=== PATIENT | female | born 1935 | race Caucasian/White ===

== ENCOUNTER 2022-12-04 14:03 | Outpatient (REF) | payer MEDICARE, SELFPAY ==
--- NOTE | ~2022-12-04 | MM_ITS ---
EXAMINATION: BONE DENSITOMETRY CLINICAL INDICATION: Osteoporosis. COMPARISON: This is the patient's baseline examination. TECHNIQUE: Using a Narr8 DXA System (software version: 13.1) manufactured by [employer], dual-energy x-ray absorptiometry was performed of the lumbar spine and left hip. The images are of good technical quality. Summary results are attached. FINDINGS: LEFT FEMUR, NECK: BMD 0.417 g/cm2, Z-score -1.6, T-score -4.5, osteoporosis. LEFT FEMUR, TOTAL: BMD 0.432 g/cm2, Z-score -1.8, T-score -4.6, osteoporosis. AP SPINE L1-L2 (excluding L3 and L4): The data of L1-L4 has been changed to exclude the L3 and L4 vertebral bodies, because degenerative sclerosis at these levels may cause overestimation of lumbar spine density. BMD 0.855 g/cm2, Z-score 0.0, T-score -2.6, osteoporosis. IDENTIFIED RISK FACTORS: Height loss, hyperthyroidism, low body weight, osteoporosis, secondary osteoporosis, history of fracture (adult). HISTORY OF FRACTURE: Femur, hip, pelvis. MEDICATIONS: None listed. MM/XR DEXA axial skeleton IMPRESSION: 1. DIAGNOSIS: Severe osteoporosis based on the lowest T-score value of -4.6 in the total femur, and the history of a femur, hip, and pelvis fracture, applying World Health Organization criteria. 2. 10-YEAR FRACTURE RISK PREDICTION, FRAX: According to the guidelines, FRAX calculation should only be performed on patients in the osteopenia bone density category. Therefore, FRAX was not performed on this patient. 3. Treatment Recommendations: NOF guidelines recommend consideration for treatment in postmenopausal women and men age 50 and older presenting with the following: -A hip or vertebral (clinical or morphometric) fracture. -T-score less than or equal to -2.5 at the femoral neck or spine after appropriate evaluation to exclude secondary causes. -Low bone mass at the hip or spine and a 10-year fracture probability by FRAX of greater than or equal to 3% for hip fracture or greater than or equal to 20% for major osteoporotic fracture based on the [place] adapted WHO algorithm. 4. Other Recommendations: All treatment decisions require clinical judgment and consideration of individual patient factors, including patient preferences, comorbidities, previous drug use, risk factors not captured in the FRAX model (e.g. frailty, falls, vitamin D deficiency, increased bone turnover, interval significant decline in bone density) and possible under or overestimation of fracture risk by FRAX. Additional medical evaluation for secondary cause of low bone mineral density may be appropriate. FUTURE SCAN RECOMMENDATION: People with diagnosed cases of osteoporosis or at high risk for fracture should have regular bone mineral density tests. For patients eligible for Medicare, routine testing is allowed once every 2 years. The testing frequency can be increased to one year for patients who have rapidly progressing disease, those who are receiving or discontinuing medical therapy to restore bone mass, or have additional risk factors.
== END 2022-12-04 14:04 | disposition home or self-care (01) ==
LOC: HO.MAMMO 14:03
PROVIDERS: Visit Provider Nurse Practitioner Family
DX: Z13.820 Encounter for screening for osteoporosis (principal); M81.0 Age-related osteoporosis without current pathological fracture; Z78.0 Asymptomatic menopausal state
CPT/HCPCS: 77080

== ENCOUNTER → 2022-12-04 14:30 | Outpatient (BNV) | payer MEDICARE, SELFPAY | PROVIDERS: Visit Provider Radiology Diagnostic Radiology | DX: M81.0 Age-related osteoporosis without current pathological fracture (principal) | CPT/HCPCS: 77080 ==

== ENCOUNTER 2022-12-06 14:34 | Outpatient (REF) | payer MEDICARE, SELFPAY ==
--- NOTE | ~2022-12-06 | CT_ITS ---
EXAMINATION: CT ABDOMEN AND PELVIS WITHOUT CONTRAST CLINICAL INFORMATION: Weight loss and diarrhea. COMPARISON: None available. TECHNIQUE: Multidetector volumetric imaging was performed from the superior aspect of the liver through the pubic symphysis. Sagittal and coronal reformatted images were obtained on the technologist's workstation. This CT examination was performed using dose optimization techniques as appropriate, variously including the following: *Automated exposure control *Adjustment of mA and/or kV according to patient size (this includes techniques or standardized protocols for targeted exams where dose is matched to indication/reason for exam; i.e. extremities or head) *Use of iterative reconstruction technique DLP: 303 mGy-cm. FINDINGS: LUNG BASES: Mild emphysematous changes are present. No suspicious lung nodules are seen. There is some mild peribronchial thickening present. Coronary artery calcification is present. The breasts are dense with coarse calcifications. LIVER, GALLBLADDER, AND BILIARY TREE: The liver is normal in size, shape, and attenuation. No focal hepatic lesion or biliary ductal dilatation is present. The gallbladder is unremarkable with no evidence of radiopaque gallstones, gallbladder wall thickening, or obvious pericholecystic inflammatory changes. PANCREAS: Unremarkable. SPLEEN: Unremarkable. ADRENAL GLANDS: Unremarkable. KIDNEYS AND URETERS: The left kidney is smaller than the right with some cortical atrophy, most prominent at the upper pole. A benign left-sided 1.6 cm Bosniak class I renal cyst is noted which requires no additional imaging or followup. No solid renal masses are seen. No nephrocalcinosis. No hydronephrosis. BLADDER: Unremarkable. GASTROINTESTINAL TRACT: There is a small hiatal hernia. There is colonic diverticulosis without diverticulitis. The small and large bowel are otherwise unremarkable. The appendix is not seen but there is no evidence of appendicitis. ABDOMINAL WALL: No significant hernia is appreciated. LYMPH NODES: No retroperitoneal lymphadenopathy. VASCULAR: Severe calcific atherosclerotic changes are present in the aorta and iliofemoral vessels. PELVIC VISCERA: Unremarkable. OSSEOUS STRUCTURES: Marked degenerative changes are present throughout the spine. There is a scoliosis convex to the left. There are 3 screws present extending through the right femoral neck. No bony destructive lesions are seen. CT/CT abdomen pelvis wo IV con IMPRESSION: 1. An occult malignancy or another cause for the patient's weight loss and diarrhea has not been found. 2. Incidental note made of emphysematous changes at the lung bases, small hiatal hernia, colonic diverticulosis without diverticulitis, severe atherosclerotic changes and degenerative changes in the spine with scoliosis. Fleischner guidelines were followed.
== END 2022-12-06 14:35 | disposition home or self-care (01) ==
LOC: HO.CT 14:34
PROVIDERS: PCP Nurse Practitioner Family; Visit Provider Internal Medicine
DX: R63.4 Abnormal weight loss (principal)
CPT/HCPCS: 74176

== ENCOUNTER 2023-10-01 15:27 | Emergency (ER) | payer MEDICARE, SELFPAY ==
[2023-10-01 15:33] VITALS: BP 132/82; BP 140/70; PULSE 72; PULSE 93; RESP 20; TEMP 37.3; O2SAT 97; O2SAT 98; BMI 15.2
--- NOTE | 2023-10-01 15:54 | ECG_ITS ---
Test Reason : AMS Blood Pressure : / mmHG Vent. Rate : 095 BPM Atrial Rate : 080 BPM P-R Int : 000 ms QRS Dur : 064 ms QT Int : 344 ms P-R-T Axes : 000 082 064 degrees QTc Int : 432 ms Normal sinus rhythm Premature atrial complexes Nonspecific ST and T wave abnormality Abnormal ECG No previous ECGs available Referred By: Chasidy Flores Electronically Signed By:ALIREZA GRAHAM
--- NOTE | 2023-10-01 16:27 | ED.AMS ---
HPI - Altered Mental Status General Chief Complaint: Altered Mental Status Stated Complaint: HALLUCINATIONS Time Seen by Provider: 10/01/23 16:02 Source: patient and EMS Mode of arrival: EMS Limitations: no limitations History of Present Illness ED Provider: Dr. Sahara Cade HPI narrative: Patient comes to the emergency room via ambulance from assisted living. Patient states that for the last few days, patient has been having hallucinations, mostly seeing her nurse walking around her bedroom at times that patient is aware that should be there. Patient states that she is aware that she is having hallucinations. Patient states that about 10 days ago she was diagnosed with a UTI and started on Bactrim. Patient denies any hematuria or dysuria. Patient denies abdominal pain, no fever or chills Related Data Allergies Allergy/AdvReac Type Severity Reaction Status Date / Time Penicillins Allergy Hives Verified 10/01/23 15:54 Review of Systems Review of Systems: Constitutional : No Weight loss, No Fever, No Chills, No Night Sweats, No Fatigue, No Malaise ENT/Mouth : No Hearing loss, No Ear Pain, No Nasal Congestion, No Sinus Pain, No Hoarseness, No sore throat, No Rhinorrhea, No Swallowing Difficulty Eyes: No Eye Pain, No Swelling, No Redness, No Foreign Body, No Discharge, No Vision Changes Cardiovascular : No Chest Pain, No SOB, No Dyspnea on Exertion, No Orthopnea, No Edema, No Palpitations Respiratory : No Cough, No Sputum, No Wheezing, No Smoke Exposure, No Dyspnea Gastrointestinal : No Nausea, No Vomiting, No Diarrhea, No Constipation, No abdominal Pain, No Hematochezia, No Melena Genitourinary : no irregular bleeding, No Dysuria, No Urinary Frequency, No Hematuria, No Urinary Incontinence, No Urgency, No Flank Pain, No Urinary Flow Changes, No Hesitancy Musculoskeletal : No joint pain, No Myalgias, No Joint Swelling Skin : No Skin Lesions, No rash Neuro : No Weakness, No Numbness, No Paresthesias, No Loss of Consciousness, No Dizziness, No Headache, complaining of hallucinations, being aware of it. Psych : No Anxiety/Panic, No Depression, No SI/HI/AH/VH, No Social Issues, Heme/Lymph: No Bruising, No Bleeding,No Lymphadenopathy Endocrine : No Polyuria, No Polydipsia, No Temperature Intolerance [facility] Past Medical History Medical History (Updated 10/01/23 @ 19:36 by Sahara Cade MD) Hypothyroidism Social History Social History Smoked in Last 30 Days: No Use of substances other than those prescribed or required for medical reasons: No Advance Directives: No Advance Directives Information Provided: Yes Do you have a plan to hurt others: No Plan Physical Exam ED Vital Signs: Vital Signs - 24 hr 10/01/23 15:33 10/01/23 17:47 10/01/23 19:23 Temperature 99.2 F 98.2 F 98.0 F Pulse Rate 93 54 81 Respiratory Rate 20 14 17 Blood Pressure 132/82 146/64 H 152/70 H Pulse Oximetry 97 99 98 Oxygen Delivery Method Room Air Room Air Room Air BMI result Body Mass Index 15.2 Const Other: Appearance: Alert. Oriented X3. No acute distress. Eyes: Pupils equal, round and reactive to light. ENT: Pharynx normal. Neck: Normal inspection. Neck supple. No lymph nodes noted. No crepitus CVS: Normal heart rate and rhythm. Pulses normal. Normal S1 and S2 Respiratory: No respiratory distress. Breath sounds normal. No Wheezing. No rales Abdomen: Soft and nontender. No rigidity. No distention. Skin: Skin warm and dry. Normal skin color. Normal skin turgor. Extremities: No lower extremity edema. No Lacerations. No Rash Neuro: Oriented X 3. No motor deficit. No sensory deficit. Moving all extremities. No slurred speech. CN 2 through 12 grossly intact Psych: calm, cooperative, normal affect Course Course Course Narrative: -all of patient's labs pending Medical Decision Making Medical Decision Making [facility] Narrative: Normal hematology and chemistry, normal ammonia levels, no UTI, urine toxicology negative, EtOH negative. -patient alert and oriented x3, no acute distress, very sharp mentally -we discussed the patient with her residence group. They are willing to take the patient back. Patient ready for discharge. -patient states that today she has not had any hallucinations. Patient feels well. Asymptomatic since her arrival. Differential Diagnosis Differential Diagnoses: The differential diagnosis associated with the presentation includes (UTI, dementia) Lab Data [facility] Lab Attestation statement: I reviewed the patient's lab results. 10/01/23 16:32 10/01/23 16:32 Labs: Lab Results 10/01/23 10/01/23 Range/Units 16:32 18:42 WBC 4.6 L (4.8-10.8) X10*3/uL RBC 4.08 L (4.20-5.50) X10*6/uL Hgb 12.6 (12.0-16.0) g/dl Hct 37.3 (37.0-47.0) % MCV 91.4 (80.0-98.0) fL MCH 30.9 (27.0-33.0) pg MCHC 33.8 (31.0-35.0) g/dl RDW 14.0 (11.0-16.0) % Plt Count 215 (160-400) X10*3/uL MPV 9.3 L (9.4-12.3) fL Immature Gran % (Auto) 0.2 (0.0-0.4) % Neut % (Auto) 66.9 (45-73) % Lymph % (Auto) 20.2 (20-40) % [place] % (Auto) 9.8 (2-11) % Eos % (Auto) 2.0 (0-4) % Baso % (Auto) 0.9 (0-2) % Lymph # (Auto) 0.9 L (1.2-4.9) X10*3/uL [place] # (Auto) 0.5 (0.1-1.2) X10*3/uL Eos # (Auto) 0.1 (0.0-0.4) X10*3/uL Baso # (Auto) 0.0 (0.0-0.2) X10*3/uL Abs Immat Gran (auto) 0.01 (0.00-0.03) X10*3/uL Absolute Neuts (auto) 3.1 (2.0-8.3) x10*3/uL Absolute Nucleated RBC 0.000 (0.0-0.012) X10*3/uL Nucleated RBC % (auto) 0.0 (0.0-0.2) /100WBC Sodium 139 (135-145) mmol/L Potassium 4.2 (3.3-5.1) mmol/L Chloride 105 (96-108) mmol/L Carbon Dioxide 26 (22-29) mmol/L Anion Gap 12 (12-20) BUN 26 H (9-16) mg/dL Creatinine 1.09 (0.5-1.4) mg/dL Estim Creat Clear Calc 25.7 Estimated GFR 48 Random Glucose 97 (60-115) mg/dL Calcium 9.5 (8.4-10.2) mg/dL Total Bilirubin 0.6 (0.0-1.0) mg/dL Direct Bilirubin 0.2 (0.0-0.5) mg/dL AST 48 H (5-31) U/L ALT 22 (0-31) U/L Alkaline Phosphatase 72 (39-117) U/L Ammonia 14 (13-55) umol/L Total Protein 6.9 (6.5-8.0) g/dL Albumin 3.9 (3.5-5.0) g/dL TSH 0.91 (0.32-4.0) uIU/mL Urine Color Yellow Urine Appearance Clear Urine pH 6.0 (5.0-9.0) Ur Specific [place] 1.010 (1.005-1.025) Urine Protein Negative (Neg-Trace) mg/dL Urine Glucose (UA) Negative (Negative) mg/dL Urine Ketones Trace (Negative) mg/dL Urine Blood Negative (Negative) Urine Nitrite Negative (Negative) Ur Leukocyte Esterase Negative (Negative) Urine Opiates Screen Not Detected (Not Detect) Ur Buprenorphine Scrn Not Detected (Not Detect) ng/mL Ur Oxycodone Screen Not Detected (Not Detect) ng/mL Urine Methadone Screen Not Detected (Not Detect) ng/mL Urine Fentanyl Screen Not Detected (Not Detect) Ur Barbiturates Screen Not Detected (Not Detect) Ur Phencyclidine Scrn Not Detected (Not Detect) Ur Amphetamines Screen Not Detected (Not Detect) U Benzodiazepines Scrn Not Detected (Not Detect) Urine Cocaine Screen Not Detected (Not Detect) U Marijuana (THC) Screen Not Detected (Not Detect) Ethyl Alcohol < 10 mg/dL Discharge Plan Discharge Clinical Impression: Hallucinations Patient Disposition: Home, Self-Care Instructions: Nonpsychiatric Hallucinations (ED) Print Language: Malay
[2023-10-01 16:37] LABS: MANUAL DIFF FLAG NO
[2023-10-01 16:46] LABS: Ammonia 14 umol/L (13-55); Basophils Percent Auto 0.9 % (0-2); Eosinophils Absolute Auto 0.1 X10*3/uL (0.0-0.4); Hematocrit 37.3 % (37.0-47.0); Hemoglobin 12.6 g/dl (12.0-16.0); Imm Gran Abs Auto 0.01 X10*3/uL (0.00-0.03); Imm Gran Pct Auto 0.2 % (0.0-0.4); Lymphocytes Absolute Auto 0.9 X10*3/uL (1.2-4.9); Lymphocytes Percent Auto 20.2 % (20-40); Mean Corpuscular HGB Conc 33.8 g/dl (31.0-35.0); Mean Corpuscular Hemoglobin 30.9 pg (27.0-33.0); Mean Corpuscular Volume 91.4 fL (80.0-98.0); Mean Platelet Volume 9.3 fL (9.4-12.3); Monocytes Absolute Auto 0.5 X10*3/uL (0.1-1.2); Monocytes Percent Auto 9.8 % (2-11); Neutrophils Absolute Auto 3.1 x10*3/uL (2.0-8.3); Neutrophils Percent Auto 66.9 % (45-73); Platelet Count 215 X10*3/uL (160-400); Red Blood Count 4.08 X10*6/uL (4.20-5.50); White Blood Count 4.6 X10*3/uL (4.8-10.8)
[2023-10-01 16:52] LABS: Ethanol < 10 mg/dL
[2023-10-01 16:55] LABS: Alanine Aminotransferase 22 U/L (0-31); Albumin Level 3.9 g/dL (3.5-5.0); Alkaline Phosphatase 72 U/L (39-117); Anion Gap 12 (12-20); Aspartate Amino Transferase 48 U/L (5-31); Bilirubin Direct 0.2 mg/dL (0.0-0.5); Bilirubin Total 0.6 mg/dL (0.0-1.0); Blood Urea Nitrogen 26 mg/dL (9-16); Calcium 9.5 mg/dL (8.4-10.2); Carbon Dioxide 26 mmol/L (22-29); Chloride 105 mmol/L (96-108); Creatinine Clr Calc Pharmacy 25.7; Estimated Glomerular Filt Rate 48; Glucose Random 97 mg/dL (60-115); Potassium 4.2 mmol/L (3.3-5.1); Sodium 139 mmol/L (135-145); Total Protein 6.9 g/dL (6.5-8.0)
[2023-10-01 17:15] LABS: TSH reflex Free T4 0.91 uIU/mL (0.32-4.0)
[2023-10-01 17:47] VITALS: BP 146/64; PULSE 54; RESP 14; TEMP 36.8; O2SAT 99
--- NOTE | 2023-10-01 18:18 | PC.NURSE ---
pt sent from [facility] facility with chief complaints of confusion, hallucinations and delusions. per ems pt was previously diagnosed with uti and started on abx, she did not take the full course. staff thinks the behavior is related to the uti.
[2023-10-01 18:55] LABS: Appearance Urine Clear; Color Urine Yellow; Glucose Urine UA Negative (Negative); Leukocyte Esterase Urine Negative (Negative); Nitrite Urine Negative (Negative); Urine Blood Negative (Negative); Urine Ketones Trace mg/dL (Negative); Urine Protein Negative (Neg-Trace)
[2023-10-01 19:09] LABS: Amphetamine Screen Urine Not Detected (Not Detect); Barbiturates, Urine Not Detected (Not Detect); Benzodiazepines Screen Urine Not Detected (Not Detect); Buprenorphine Scr Not Detected (Not Detect); Cannabinoid Screen Urine Not Detected (Not Detect); Cocaine Screen Urine Not Detected (Not Detect); Fentanyl, urine Not Detected (Not Detect); Methadone Screen, Urine Not Detected (Not Detect); Opiate Screen Urine Not Detected (Not Detect); Oxycodone Screen Urine Not Detected (Not Detect); Phencyclidine Screen Urine Not Detected (Not Detect)
[2023-10-01 19:23] VITALS: BP 152/70; PULSE 81; RESP 17; TEMP 36.7; O2SAT 98
--- NOTE | 2023-10-01 19:30 | PC.NURSE ---
Called [facility] and spoke with the nurse on duty, Shea, who expressed concerns for pts hallucinations post UTI treatment. Lab and urine results discussed with Shea. Plan is for pt to return to assisted living facility. Code to get through the door is 6611*. made aware.
[2023-10-01 21:37] VITALS: BP 152/70; PULSE 81; RESP 17; TEMP 36.7; O2SAT 98
== END 2023-10-01 21:39 | disposition home or self-care (01) ==
PROVIDERS: Emergency Provider Emergency Medicine
DX: R44.3 Hallucinations, unspecified (principal); Z87.440 Personal history of urinary (tract) infections
CPT/HCPCS: 36415; 80048; 80076; 80307; 81003; 82140; 84443; 85025; 93005; 99283; 99285

== ENCOUNTER → 2023-10-01 15:54 | Outpatient (BNV) | payer MEDICARE, SELFPAY | PROVIDERS: Emergency Provider Emergency Medicine; Visit Provider Internal Medicine | DX: R94.31 Abnormal electrocardiogram [ECG] [EKG] (principal) | CPT/HCPCS: 93010 ==

== ENCOUNTER 2023-10-03 10:41 | Inpatient (IN) | payer MEDICARE, SELFPAY ==
--- NOTE | ~2023-10-03 | CT_ITS ---
EXAMINATION: CT HEAD WITHOUT CONTRAST CT CERVICAL SPINE WITHOUT CONTRAST CLINICAL INFORMATION: 88-year-old female, status post fall and mental status change COMPARISON: None TECHNIQUE: CT of the head and cervical spine were performed without intravenous contrast. Multiplanar reformats were rendered and reviewed. This CT examination was performed using dose optimization techniques as appropriate, variously including the following: *Automated exposure control *Adjustment of mA and/or kV according to patient size (this includes techniques or standardized protocols for targeted exams where dose is matched to indication/reason for exam; i.e. extremities or head) *Use of iterative reconstruction technique DLP: 780 mGy-cm. FINDINGS: CT head: No intracranial hemorrhage, large infarction, or mass lesion is seen. No extra-axial collection is appreciated. The ventricles are normal in size and configuration without evidence of hydrocephalus. There are mild patchy periventricular white matter changes as a sequela of microangiopathy. The visualized paranasal sinuses and mastoid air cells are clear. CT cervical spine: The cervical alignment is normal. The craniocervical junction is normal. The vertebral body heights are maintained. No cervical spine fracture is seen. There are multilevel degenerative changes with narrowing of disc spaces and hyperlordosis. There is no evidence of fractures. There is grade 1 posterior listhesis of C3 over C4 The paraspinal soft tissues are within normal limits. The partially imaged lung apices are clear. CT/CT head/brain wo IV con IMPRESSION: CT HEAD: No acute intracranial finding. Sequela of microangiopathy CT CERVICAL SPINE: 1. No cervical spine fracture or traumatic malalignment identified. 2. Multilevel degenerative changes.
--- NOTE | ~2023-10-03 | CT_ITS ---
EXAMINATION: CT HEAD WITHOUT CONTRAST CT CERVICAL SPINE WITHOUT CONTRAST CLINICAL INFORMATION: 88-year-old female, status post fall and mental status change COMPARISON: None TECHNIQUE: CT of the head and cervical spine were performed without intravenous contrast. Multiplanar reformats were rendered and reviewed. This CT examination was performed using dose optimization techniques as appropriate, variously including the following: *Automated exposure control *Adjustment of mA and/or kV according to patient size (this includes techniques or standardized protocols for targeted exams where dose is matched to indication/reason for exam; i.e. extremities or head) *Use of iterative reconstruction technique DLP: 780 mGy-cm. FINDINGS: CT head: No intracranial hemorrhage, large infarction, or mass lesion is seen. No extra-axial collection is appreciated. The ventricles are normal in size and configuration without evidence of hydrocephalus. There are mild patchy periventricular white matter changes as a sequela of microangiopathy. The visualized paranasal sinuses and mastoid air cells are clear. CT cervical spine: The cervical alignment is normal. The craniocervical junction is normal. The vertebral body heights are maintained. No cervical spine fracture is seen. There are multilevel degenerative changes with narrowing of disc spaces and hyperlordosis. There is no evidence of fractures. There is grade 1 posterior listhesis of C3 over C4 The paraspinal soft tissues are within normal limits. The partially imaged lung apices are clear. CT/CT cervical spine wo IV con IMPRESSION: CT HEAD: No acute intracranial finding. Sequela of microangiopathy CT CERVICAL SPINE: 1. No cervical spine fracture or traumatic malalignment identified. 2. Multilevel degenerative changes.
--- NOTE | ~2023-10-03 | XR_ITS ---
EXAMINATION: XR CHEST CLINICAL INFORMATION: Difficulty breathing COMPARISON: None available. TECHNIQUE: Frontal view of the chest was obtained. FINDINGS: Severe scoliosis noted. Heart and pulmonary vessels normal. Lungs clear. Small hiatal hernia. XR/XR chest 1V IMPRESSION: Distorted thoracic cage but no active disease.
--- NOTE | 2023-10-03 11:04 | ED.AMS ---
HPI - Altered Mental Status General Chief Complaint: Fall Stated Complaint: AMS,?FALL/FOUND ON FLOOR,[facility] Source: patient, EMS and old records reviewed Mode of arrival: EMS Limitations: no limitations History of Present Illness ED Provider: RANULFO HPI narrative: 88 yo female with severe arthritis, kyphosis, UTI just treated with bactrim 2 weeks ago but stopped it due to hallucinations, hypothyroidism, lives at assisted living facility staff found her on ground today she denies a fall or injury she states she was packing. She notes a new couple moved into her unit yesterday 4pm and she does not want roommates. This did not happen. She is alert and oriented but has a delusion that someone is now living in her unit. per family and caregiver has been having persistent delusion since starting bactrim lst dose of bactrim was on Saturday complaint: confusion Onset (ago): day(s) (1) Timing confirmed by: caregiver Severity: mild Consistency of symptoms: waxing and waning Context: other (recent UTI) Associated symptoms: other (found sitting on ground) Related Data Allergies Allergy/AdvReac Type Severity Reaction Status Date / Time Penicillins Allergy Hives Verified 10/03/23 11:11 sulfamethoxazole Allergy Hallucinati Verified 10/03/23 11:11 [From Bactrim] ons trimethoprim [From Bactrim] Allergy Hallucinati Verified 10/03/23 11:11 ons Review of Systems Review of Systems: Constitutional : No Fever, No Chills, No Fatigue ENT/Mouth : No sore throat, No Rhinorrhea Eyes: No Eye Pain, No Swelling, No Redness Cardiovascular : No Chest Pain, No SOB, No Dyspnea on Exertion Respiratory : No Cough, No Sputum Gastrointestinal : No Nausea, No Vomiting, No Diarrhea, No abdominal Pain Genitourinary : pos Dysuria, No Urinary Frequency, No Hematuria, Musculoskeletal : No joint pain, No Myalgias, No Joint Swelling Skin : No Skin Lesions, No rash Neuro : No Weakness, No Numbness, No Dizziness, no Headache Psych : No Anxiety/Panic, No Depression All other systems reviewed and are negative [facility] Past Medical History Attestation statement: The following information was validated with the patient. Source: old records reviewed Medical History (Updated 10/03/23 @ 15:20 by Jessica Cherry DO) UTI (urinary tract infection) Hypothyroidism Social History Social History (Updated 10/03/23 @ 11:27 by Jessica Cherry DO) Patient Tobacco Use Status: Never used Tobacco Advance Directives: No Advance Directives Information Provided: Yes Do you have a plan to hurt others: No Plan Physical Exam ED Vital Signs: Vital Signs - 24 hr 10/03/23 11:07 10/03/23 15:13 Temperature 97.9 F 98.1 F Pulse Rate 89 99 Respiratory Rate 16 12 Blood Pressure 106/57 L 136/77 Pulse Oximetry 96 96 Oxygen Delivery Method Room Air Room Air BMI result Body Mass Index 18.2 Appearance: Alert. Oriented X3. No acute distress. talks about couple moving into her unit but otherwise oriented. Eyes: Pupils equal, round and reactive to light. ENT: Pharynx normal. atraumatic Neck: Normal inspection. Neck supple. kyphotic and hunched over - collar removed no midline ttp CVS: Normal heart rate and rhythm. Pulses normal. Respiratory: No respiratory distress. Breath sounds normal. Abdomen: Soft and nontender. Skin: Skin warm and dry. Normal skin color. Normal skin turgor. Extremities: No lower extremity edema. No calf ttp Neuro: Oriented X 3. No motor deficit. No sensory deficit. Course Course Course Narrative: signed out to Dr. Cade pending CT scans and if negative would refer to psych for delusions as well Medications Administered Generic Name Dose Route Start Last Admin Trade Name Freq PRN Reason Stop Dose Admin Sodium Chloride 1,000 mls @ 100 mls/hr 10/03/23 14:15 10/03/23 14:57 Ns IVCONT 100 mls/hr .Q10H MERVIN Administration Medical Decision Making Medical Decision Making [facility] Narrative: 88 yo female with severe arthritis, kyphosis, UTI just treated with bactrim 2 weeks ago but stopped it due to hallucinations, hypothyroidism, lives at assisted living facility staff here with delusion of someone moving into her unit yesterday found down on ground she did have recent UTI at this time labs, UA, CT head/cspine, CXR, CPK ordered. delusions associated with medication Differential Diagnosis Differential Diagnoses: The differential diagnosis associated with the presentation includes delusions, UTI, anemia, dehydration, trauma Admission/Observation Consideration of admission/observation: Escalation of care including admission/observation considered start observation until she can be seen by psychiatry [employer] for delusions observation started at 324pm Consult Healthcare Provider Management of the patient was discussed with: Behavioral Health Provider Lab Data [facility] Lab Attestation statement: I reviewed the patient's lab results. 10/03/23 13:41 10/03/23 13:38 Labs: Lab Results 10/03/23 10/03/23 10/03/23 Range/Units 13:12 13:38 13:41 WBC 6.7 (4.8-10.8) X10*3/uL RBC 4.27 (4.20-5.50) X10*6/uL Hgb 13.4 (12.0-16.0) g/dl Hct 39.3 (37.0-47.0) % MCV 92.0 (80.0-98.0) fL MCH 31.4 (27.0-33.0) pg MCHC 34.1 (31.0-35.0) g/dl RDW 14.1 (11.0-16.0) % Plt Count 242 (160-400) X10*3/uL MPV 9.2 L (9.4-12.3) fL Immature Gran % (Auto) 0.3 (0.0-0.4) % Neut % (Auto) 77.2 H (45-73) % Lymph % (Auto) 14.9 L (20-40) % [place] % (Auto) 6.3 (2-11) % Eos % (Auto) 0.8 (0-4) % Baso % (Auto) 0.5 (0-2) % Lymph # (Auto) 1.0 L (1.2-4.9) X10*3/uL [place] # (Auto) 0.4 (0.1-1.2) X10*3/uL Eos # (Auto) 0.1 (0.0-0.4) X10*3/uL Baso # (Auto) 0.0 (0.0-0.2) X10*3/uL Abs Immat Gran (auto) 0.02 (0.00-0.03) X10*3/uL Absolute Neuts (auto) 5.1 (2.0-8.3) x10*3/uL Absolute Nucleated RBC 0.000 (0.0-0.012) X10*3/uL Nucleated RBC % (auto) 0.0 (0.0-0.2) /100WBC VBG pH (7.32-7.43) VBG pCO2 mmHg VBG pO2 mmHg VBG HCO3 (22-26) mmol/L VBG O2 Saturation % VBG Base Excess mmol/L Sodium 143 (135-145) mmol/L Potassium 4.4 (3.3-5.1) mmol/L Chloride 107 (96-108) mmol/L Carbon Dioxide 26 (22-29) mmol/L Anion Gap 14 (12-20) BUN 27 H (9-16) mg/dL Creatinine 1.01 (0.5-1.4) mg/dL Estim Creat Clear Calc 28.5 Estimated GFR 52 Random Glucose 94 (60-115) mg/dL Lactic Acid 1.0 (0.5-2.0) mmol/L Calcium 10.2 D (8.4-10.2) mg/dL Magnesium 2.0 (1.6-2.6) mg/dL Total Bilirubin 0.7 (0.0-1.0) mg/dL Direct Bilirubin 0.2 (0.0-0.5) mg/dL AST 46 H (5-31) U/L ALT 24 (0-31) U/L Alkaline Phosphatase 79 (39-117) U/L Total Creatine Kinase 611 H (26-140) U/L Troponin I High Sens 11.5 (<3.5-17.0) ng/L Total Protein 7.4 (6.5-8.0) g/dL Albumin 4.2 (3.5-5.0) g/dL Lipase 42 (8-78) U/L TSH 2.92 (0.32-4.0) uIU/mL Urine Color Yellow Urine Appearance Clear Urine pH 5.5 (5.0-9.0) Ur Specific [place] 1.015 (1.005-1.025) Urine Protein Trace (Neg-Trace) mg/dL Urine Glucose (UA) Negative (Negative) mg/dL Urine Ketones Trace (Negative) mg/dL Urine Blood Negative (Negative) Urine Nitrite Negative (Negative) Ur Leukocyte Esterase Small (1+) H (Negative) Urine RBC 0-2 (0-2) /HPF Urine WBC 0-5 (0-5) /HPF Ur Squamous Epith Cells 0-2 (0-2) /HPF Urine Bacteria None Seen (None Seen) Hyaline Casts 0-2 (0-2) /LPF 10/03/23 Range/Units 13:45 WBC (4.8-10.8) X10*3/uL RBC (4.20-5.50) X10*6/uL Hgb (12.0-16.0) g/dl Hct (37.0-47.0) % MCV (80.0-98.0) fL MCH (27.0-33.0) pg MCHC (31.0-35.0) g/dl RDW (11.0-16.0) % Plt Count (160-400) X10*3/uL MPV (9.4-12.3) fL Immature Gran % (Auto) (0.0-0.4) % Neut % (Auto) (45-73) % Lymph % (Auto) (20-40) % [place] % (Auto) (2-11) % Eos % (Auto) (0-4) % Baso % (Auto) (0-2) % Lymph # (Auto) (1.2-4.9) X10*3/uL [place] # (Auto) (0.1-1.2) X10*3/uL Eos # (Auto) (0.0-0.4) X10*3/uL Baso # (Auto) (0.0-0.2) X10*3/uL Abs Immat Gran (auto) (0.00-0.03) X10*3/uL Absolute Neuts (auto) (2.0-8.3) x10*3/uL Absolute Nucleated RBC (0.0-0.012) X10*3/uL Nucleated RBC % (auto) (0.0-0.2) /100WBC VBG pH 7.34 (7.32-7.43) VBG pCO2 50 mmHg VBG pO2 32 mmHg VBG HCO3 27 H (22-26) mmol/L VBG O2 Saturation 48.0 % VBG Base Excess 1.2 mmol/L Sodium (135-145) mmol/L Potassium (3.3-5.1) mmol/L Chloride (96-108) mmol/L Carbon Dioxide (22-29) mmol/L Anion Gap (12-20) BUN (9-16) mg/dL Creatinine (0.5-1.4) mg/dL Estim Creat Clear Calc Estimated GFR Random Glucose (60-115) mg/dL Lactic Acid (0.5-2.0) mmol/L Calcium (8.4-10.2) mg/dL Magnesium (1.6-2.6) mg/dL Total Bilirubin (0.0-1.0) mg/dL Direct Bilirubin (0.0-0.5) mg/dL AST (5-31) U/L ALT (0-31) U/L Alkaline Phosphatase (39-117) U/L Total Creatine Kinase (26-140) U/L Troponin I High Sens (<3.5-17.0) ng/L Total Protein (6.5-8.0) g/dL Albumin (3.5-5.0) g/dL Lipase (8-78) U/L TSH (0.32-4.0) uIU/mL Urine Color Urine Appearance Urine pH (5.0-9.0) Ur Specific [place] (1.005-1.025) Urine Protein (Neg-Trace) mg/dL Urine Glucose (UA) (Negative) mg/dL Urine Ketones (Negative) mg/dL Urine Blood (Negative) Urine Nitrite (Negative) Ur Leukocyte Esterase (Negative) Urine RBC (0-2) /HPF Urine WBC (0-5) /HPF Ur Squamous Epith Cells (0-2) /HPF Urine Bacteria (None Seen) Hyaline Casts (0-2) /LPF Independent Interpretation I performed an independent interpretation of an: EKG, Plain X-Ray (no pneumonia) and CT Scan (no ICH) Interpretation: Rate: 59 Rhythm: sinus bradycardia [place]: normal Normal P waves. Normal ELLA. Normal QRS complex. ST T wave : inverted t wave V1, no ALINA qTC: 374 prior studies: no acute ischemia The study has been interpreted contemporaneously by me. . Radiology Impression Discussion of test interpretation with radiology: I have reviewed the radiologist's reading. Independent Historian Clinical information obtained from an independent historian. History obtained from or confirmed by: EMS and Other (daughter, caregiver) External Record Review External record reviewed: Inpatient record Discharge Plan Discharge Clinical Impression: Delusions, Recurrent falls Patient Disposition: Still a Patient Print Language: [place]
[2023-10-03 11:07] VITALS: BP 106/55; BP 106/57; PULSE 100; PULSE 89; RESP 16; TEMP 36.6; O2SAT 96; O2SAT 99; BMI 18.2
--- NOTE | 2023-10-03 11:13 | ECG_ITS ---
Test Reason : WEAKNESS Blood Pressure : / mmHG Vent. Rate : 059 BPM Atrial Rate : 059 BPM P-R Int : 152 ms QRS Dur : 072 ms QT Int : 378 ms P-R-T Axes : 065 029 055 degrees QTc Int : 374 ms Sinus bradycardia Otherwise normal ECG When compared with ECG of 01-OCT-2023 15:55, Premature atrial complexes are no longer Present Vent. rate has decreased BY 36 BPM Nonspecific T wave abnormality no longer evident in Anterior leads QT has shortened Referred By: Jessica Cherry Electronically Signed By:ALIREZA GRAHAM
[2023-10-03 13:21] LABS: Appearance Urine Clear; Color Urine Yellow; Glucose Urine UA Negative (Negative); Leukocyte Esterase Urine Small (1+) (Negative); Nitrite Urine Negative (Negative); PH 5.5 (5.0-9.0); Specific Gravity - Urine 1.015 (1.005-1.025); UMIC TRIGGER UACC YES; Urine Blood Negative (Negative); Urine Ketones Trace mg/dL (Negative); Urine Protein Trace mg/dL (Neg-Trace)
[2023-10-03 13:41] LABS: Bacteria Urine None Seen (None Seen); Hyaline Casts Urine 0-2 /LPF (0-2); RBC Urine 0-2 /HPF (0-2); Squamous Epithelial Cell Urine 0-2 /HPF (0-2); UACC Culture Trigger YES; WBC Urine 0-5 /HPF (0-5)
[2023-10-03 13:46] LABS: MANUAL DIFF FLAG NO
[2023-10-03 13:49] LABS: Basophils Percent Auto 0.5 % (0-2); Eosinophils Absolute Auto 0.1 X10*3/uL (0.0-0.4); Eosinophils Percent Auto 0.8 % (0-4); Hematocrit 39.3 % (37.0-47.0); Hemoglobin 13.4 g/dl (12.0-16.0); Imm Gran Abs Auto 0.02 X10*3/uL (0.00-0.03); Imm Gran Pct Auto 0.3 % (0.0-0.4); Lymphocytes Percent Auto 14.9 % (20-40); Mean Corpuscular HGB Conc 34.1 g/dl (31.0-35.0); Mean Corpuscular Hemoglobin 31.4 pg (27.0-33.0); Mean Platelet Volume 9.2 fL (9.4-12.3); Monocytes Absolute Auto 0.4 X10*3/uL (0.1-1.2); Monocytes Percent Auto 6.3 % (2-11); Neutrophils Absolute Auto 5.1 x10*3/uL (2.0-8.3); Neutrophils Percent Auto 77.2 % (45-73); Platelet Count 242 X10*3/uL (160-400); Red Blood Count 4.27 X10*6/uL (4.20-5.50); Red Cell Distribution Width 14.1 % (11.0-16.0); White Blood Count 6.7 X10*3/uL (4.8-10.8)
[2023-10-03 13:50] LABS: Venous Blood Gas Refer to POC result
[2023-10-03 13:52] LABS: VBG Base Excess 1.2 mmol/L; VBG HCO3 27 mmol/L (22-26); VBG pCO2 50 mmHg; VBG pH 7.34 (7.32-7.43); VBG pO2 32 mmHg
[2023-10-03 14:10] LABS: Alanine Aminotransferase 24 U/L (0-31); Albumin Level 4.2 g/dL (3.5-5.0); Alkaline Phosphatase 79 U/L (39-117); Anion Gap 14 (12-20); Aspartate Amino Transferase 46 U/L (5-31); Bilirubin Direct 0.2 mg/dL (0.0-0.5); Bilirubin Total 0.7 mg/dL (0.0-1.0); Blood Urea Nitrogen 27 mg/dL (9-16); Calcium 10.2 mg/dL (8.4-10.2); Carbon Dioxide 26 mmol/L (22-29); Chloride 107 mmol/L (96-108); Creatinine Clr Calc Pharmacy 28.5; Estimated Glomerular Filt Rate 52; Glucose Random 94 mg/dL (60-115); Lipase 42 U/L (8-78); Potassium 4.4 mmol/L (3.3-5.1); Sodium 143 mmol/L (135-145); Total Protein 7.4 g/dL (6.5-8.0)
[2023-10-03 14:17] LABS: Troponin-I High Sensitivity 11.5 ng/L (<3.5-17.0)
[2023-10-03 14:32] LABS: TSH reflex Free T4 2.92 uIU/mL (0.32-4.0)
[2023-10-03] MEDS: 0.9 % Sodium Chloride 1,000 ML 100 ML IVCONT (14:57)
[2023-10-03 15:13] VITALS: BP 136/77; PULSE 99; RESP 12; TEMP 36.7; O2SAT 96
[2023-10-03 16:06] VITALS: BP 128/57; PULSE 68; RESP 18; O2SAT 96
[2023-10-03 18:00] VITALS: BP 118/62; PULSE 60; RESP 14; O2SAT 98
--- NOTE | 2023-10-03 20:01 | PHA.MEDREC ---
Pharmacy Consult ? Medication Reconciliation Pharmacy has completed the medication reconciliation. Comfirmed medications from list provided by [facility].
[2023-10-03 20:17] VITALS: BP 123/40; PULSE 95; RESP 15; TEMP 36.7; O2SAT 95
[2023-10-03 22:07] VITALS: BP 111/51; PULSE 86; RESP 12; TEMP 37; O2SAT 97
[2023-10-04] VITALS (8 sets, daily range): BP systolic 110–155; BP diastolic 53–86; PULSE 57–104; RESP 5–19; TEMP 36.4–36.8; O2SAT 95–99
--- NOTE | 2023-10-04 00:43 | PC.NURSE ---
Patient alert to self, place, and familiar person. VSS. She denies any pain present. Patient found to be soiled with urine and BM, bed linens changed, abdifatah care provided, pure wick applied and connected to the wall suction, IV fluids running via 20 G IV line in right forearm. Patient offers no complaints at this time, call lynch in reach, POC ongoing.
[2023-10-04] MEDS: 0.9 % Sodium Chloride 1,000 ML 100 ML IVCONT ×3 (01:04→21:44)
--- NOTE | 2023-10-04 03:54 | ECG_ITS ---
Test Reason : BRADYCARDIA Blood Pressure : / mmHG Vent. Rate : 059 BPM Atrial Rate : 059 BPM P-R Int : 152 ms QRS Dur : 076 ms QT Int : 398 ms P-R-T Axes : 054 059 074 degrees QTc Int : 394 ms Sinus bradycardia with Premature atrial complexes Otherwise normal ECG When compared with ECG of 03-OCT-2023 11:23, Premature atrial complexes are now Present Referred By: Elli Garrett Electronically Signed By:ALIREZA GRAHAM
--- NOTE | 2023-10-04 03:55 | PC.NURSE ---
Dr. Garrett notified of HR dropping to 38-40 while asleep, ordered EKG. TANIA Soler at bedside performing EKG.
[2023-10-04] MEDS: Acetaminophen 325 MG TABLET 1300 MG PO ×2 (09:09→21:43)
[2023-10-04] MEDS: Levothyroxine Sodium 50 MCG TABLET PO (09:10)
[2023-10-04] MEDS: Cholecalciferol (Vitamin D3) 25 MCG TABLET PO (09:10)
[2023-10-04] MEDS: Levothyroxine Sodium 25 MCG TABLET PO (09:48)
--- NOTE | 2023-10-04 12:54 | PC.NURSE ---
pt's home care nurse came in to visit. they have been watching tv and talking. pt had a bowel movement. bed linens changed, pt cleaned. no apparent distress. MTN fluids infusing.
--- NOTE | 2023-10-04 19:16 | MHC.EDTECH ---
THIS TECH TOOK OVER CARE COLLEGE SPECIALIST AT 1900
--- NOTE | 2023-10-04 19:26 | PC.NURSE ---
Assumed care of pt at 1915, pt alert and oriented, sitting up in bed eating pudding. No distress at this time, denies any pain or discomfort. Call lynch within reach.
--- NOTE | 2023-10-04 22:11 | PC.NURSE ---
Lindsey, features editor called for update. T/w informed of plan and aware of pt mentation. Pt is doing well at this time and awaiting consultation from psych.
[2023-10-05] VITALS (7 sets, daily range): BP systolic 111–152; BP diastolic 52–80; PULSE 45–101; RESP 12–18; TEMP 36.2–36.9; O2SAT 97–99
[2023-10-05] MEDS: Levothyroxine Sodium 50 MCG TABLET PO (05:50)
--- NOTE | 2023-10-05 05:54 | PC.NURSE ---
Pt incontinent of urine, cleaned and new linen applied.
--- NOTE | 2023-10-05 08:22 | MHC.EDTECH ---
Cleaned patient and changed Purewick and linen.
--- NOTE | 2023-10-05 09:04 | PM.PSYCN ---
History of Present Illness Date of Service: 10/05/23 Chief Complaint: AMS,?FALL/FOUND ON FLOOR,FROM [facility],-THINN PER EMS Reason for Consult: Delusions/Hallucinations Requesting physician: Jessica Cherry Sources of Information: patient interviewed (pt asleep, awakens easily but is a poor historian) and chart reviewed HPI Narrative: 88 yo female, second ER visit, first being on 09/30 for hallucinations, 10/02 for delusions and s/p ?fall at her [facility]. Pt reports a history of recent UTI with Bactrim Rx~2 weeks ago that was stopped as hallucinations developed. Notes report Bactrim discontinued 09/27 and pt with sx persisting with visit yesterday. Initially pt reporting hallucinations with awareness, now believes that other people will be moving into her home and is attempting to pack. Discussed with team, pt no longer with UTI sx and without a need to treat, but with residual sx of psychosis. Pt, just waking up this a.m. denies distress. Diagnostics reviewed, WBC 6.7/BUN 27/TCK 611. Medical Evaluation Reviewed: Yes Review of Systems Review of Systems Yes all other systems are reviewed and are negative FOR[facility]LY [facility], [facility] Medical History UTI (urinary tract infection) Hypothyroidism Diagnostics Vital Signs (24Hr): Vital Signs - 24 hr 10/04/23 12:15 10/04/23 16:07 10/04/23 18:16 Temperature 97.6 F 97.7 F Pulse Rate 57 79 82 Respiratory Rate 14 5 L 19 Blood Pressure 124/62 110/63 144/83 H Pulse Oximetry 99 95 98 Oxygen Delivery Method Room Air Room Air Room Air 10/04/23 20:29 10/05/23 00:41 10/05/23 05:28 Temperature 97.7 F 97.6 F Pulse Rate 104 H 84 Respiratory Rate 17 18 17 Blood Pressure 118/64 152/72 H Pulse Oximetry 97 99 Oxygen Delivery Method Room Air Room Air 10/05/23 07:47 Temperature 97.6 F Pulse Rate 45 L Respiratory Rate 15 Blood Pressure 134/52 L Pulse Oximetry 99 Oxygen Delivery Method Room Air BMI result Body Mass Index 18.2 Labs 10/03/23 13:41 10/03/23 13:38 Labs: Laboratory Results - last 48 hr 10/03/23 10/03/23 10/03/23 13:12 13:38 13:41 WBC 6.7 RBC 4.27 Hgb 13.4 Hct 39.3 MCV 92.0 MCH 31.4 MCHC 34.1 RDW 14.1 Plt Count 242 MPV 9.2 L Immature Gran % (Auto) 0.3 Neut % (Auto) 77.2 H Lymph % (Auto) 14.9 L [place] % (Auto) 6.3 Eos % (Auto) 0.8 Baso % (Auto) 0.5 Lymph # (Auto) 1.0 L [place] # (Auto) 0.4 Eos # (Auto) 0.1 Baso # (Auto) 0.0 Abs Immat Gran (auto) 0.02 Absolute Neuts (auto) 5.1 Absolute Nucleated RBC 0.000 Nucleated RBC % (auto) 0.0 VBG pH VBG pCO2 VBG pO2 VBG HCO3 VBG O2 Saturation VBG Base Excess Sodium 143 Potassium 4.4 Chloride 107 Carbon Dioxide 26 Anion Gap 14 BUN 27 H Creatinine 1.01 Estim Creat Clear Calc 28.5 Estimated GFR 52 Random Glucose 94 Lactic Acid 1.0 Calcium 10.2 D Magnesium 2.0 Total Bilirubin 0.7 Direct Bilirubin 0.2 AST 46 H ALT 24 Alkaline Phosphatase 79 Total Creatine Kinase 611 H Troponin I High Sens 11.5 Total Protein 7.4 Albumin 4.2 Lipase 42 TSH 2.92 Urine Color Yellow Urine Appearance Clear Urine pH 5.5 Ur Specific [place] 1.015 Urine Protein Trace Urine Glucose (UA) Negative Urine Ketones Trace Urine Blood Negative Urine Nitrite Negative Ur Leukocyte Esterase Small (1+) H Urine RBC 0-2 Urine WBC 0-5 Ur Squamous Epith Cells 0-2 Urine Bacteria None Seen Hyaline Casts 0-2 10/03/23 13:45 WBC RBC Hgb Hct MCV MCH MCHC RDW Plt Count MPV Immature Gran % (Auto) Neut % (Auto) Lymph % (Auto) [place] % (Auto) Eos % (Auto) Baso % (Auto) Lymph # (Auto) [place] # (Auto) Eos # (Auto) Baso # (Auto) Abs Immat Gran (auto) Absolute Neuts (auto) Absolute Nucleated RBC Nucleated RBC % (auto) VBG pH 7.34 VBG pCO2 50 VBG pO2 32 VBG HCO3 27 H VBG O2 Saturation 48.0 VBG Base Excess 1.2 Sodium Potassium Chloride Carbon Dioxide Anion Gap BUN Creatinine Estim Creat Clear Calc Estimated GFR Random Glucose Lactic Acid Calcium Magnesium Total Bilirubin Direct Bilirubin AST ALT Alkaline Phosphatase Total Creatine Kinase Troponin I High Sens Total Protein Albumin Lipase TSH Urine Color Urine Appearance Urine pH Ur Specific [place] Urine Protein Urine Glucose (UA) Urine Ketones Urine Blood Urine Nitrite Ur Leukocyte Esterase Urine RBC Urine WBC Ur Squamous Epith Cells Urine Bacteria Hyaline Casts Imaging Radiology Impressions: ITS Impressions Chest X-Ray 10/03/23 11:22 IMPRESSION: Distorted thoracic cage but no active disease. Cervical Spine CT 10/03/23 14:13 IMPRESSION: CT HEAD: No acute intracranial finding. Sequela of microangiopathy CT CERVICAL SPINE: 1. No cervical spine fracture or traumatic malalignment identified. 2. Multilevel degenerative changes. Head CT 10/03/23 14:13 IMPRESSION: CT HEAD: No acute intracranial finding. Sequela of microangiopathy CT CERVICAL SPINE: 1. No cervical spine fracture or traumatic malalignment identified. 2. Multilevel degenerative changes. Mental Status Exam Mental Status Exam Patient Appearance: Fatigued Patient Orientation: Person Level of Consciousness: Drowsy Patient Behavior: Appropriate Mood Description: Calm Affect Description: Calm Speech Pattern: Spontaneous Speech Judgement: Fair Medications Medications Current Medications Acetaminophen (Acetaminophen 325 Mg Tablet) 1,300 mg PO BID [facility] Last Admin: 10/04/23 21:43 Dose: 1,300 mg Calcium Carbonate (Calcium Carbonate 500 Mg Tablet) 1,000 mg PO BID [facility] Last Admin: 10/04/23 21:43 Dose: 1,000 mg Levothyroxine Sodium (Levothyroxine Sodium 50 Mcg Tablet) 50 mcg PO DAILY@0600 [facility] Last Admin: 10/05/23 05:50 Dose: 50 mcg Levothyroxine Sodium (Levothyroxine Sodium 25 Mcg Tablet) 25 mcg PO MOFR@0600 [facility] Last Admin: 10/04/23 09:48 Dose: 25 mcg Loperamide HCl (Loperamide Hcl 2 Mg Capsule) 2 mg PO DAILY PRN PRN Reason: Loose Stool Vitamin D (Cholecalciferol (Vitamin D3) 25 Mcg Tablet) 25 mcg PO DAILY [facility] Last Admin: 10/04/23 09:10 Dose: 25 mcg Allergies Allergies Allergy/AdvReac Type Severity Reaction Status Date / Time Penicillins Allergy Hives Verified 10/03/23 11:11 sulfamethoxazole Allergy Hallucinati Verified 10/03/23 11:11 [From Bactrim] ons trimethoprim [From Bactrim] Allergy Hallucinati Verified 10/03/23 11:11 ons Assessment & Plan Assessment & Plan (1) Delusions: Status: Acute Code(s): F22 - Delusional disorders (2) Delirium due to another medical condition: Status: Acute Code(s): F05 - Delirium due to known physiological condition Plan 88 yo female, second ER visit in a few days. Pt reportedly developed hallucinations/delusions while using Bactrim for UTI rx. Bactrim was reportedly stopped 09/27. Pt presented 09/30 and 10/02, initially with hallucinations/awareness, then with delusions that others were moving into her home at her [facility]. Team requesting consult for sx mgt. Assessment: Probable waning delirium from both UTI and Bactrim Rx. Pt also with dehydration, BUN 27. Plan: Haldol 1 mg po trial today Encourage fluids/mobility/extra supervision when returning to [facility] If pt is in need of ongoing meds, consider Haldol 0.5 mg daily prn As you are aware delirium can take some time to resolve. Pt's fluid intake and mobility are significant interventions to assist her in clearing in a shorter period of time. Encourage discussion of pts symptoms/perceptions as she reportedly has awareness and improved understanding and reality testing will assist with recovery as well. We are available to pt as needed. Total time managing care of this patient today ____ minutes.
[2023-10-05] MEDS: HaloperidoL 1 MG TABLET PO (09:32)
[2023-10-05] MEDS: Cholecalciferol (Vitamin D3) 25 MCG TABLET PO (09:32)
[2023-10-05] MEDS: Acetaminophen 325 MG TABLET 1300 MG PO ×2 (09:32→20:44)
--- NOTE | 2023-10-05 15:14 | PC.NURSE ---
pt cleaned, changed into fresh hospital attire, renywick changed. pt alert and pleasantly confused. family at bedside, updated on plan of care by JOSE Goodman, pt remain PT/CM Bed search for delusions. pt resting quietly with call lynch within reach
--- NOTE | 2023-10-05 17:38 | PC.NURSE ---
pt resting comfortably at this time, watching TV, easily wakes to name, cooperative with care, fall precautions maintained
--- NOTE | 2023-10-05 20:47 | PC.NURSE ---
PT a/o, resting quietly. respirations even and unlabored VSS, cardiac monitoring in place-artial complexes noted 86bpm. Purewick in place output 600 cc of yellow urine. Medications administered as per JUL. unable to scan meds as in room scanner not working.
[2023-10-06] VITALS (7 sets, daily range): BP systolic 103–151; BP diastolic 49–87; PULSE 72–102; RESP 16–20; TEMP 36.2–38.4; O2SAT 97–98
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
[2023-10-06] MEDS: Levothyroxine Sodium 50 MCG TABLET PO (06:45)
[2023-10-06] MEDS: Cholecalciferol (Vitamin D3) 25 MCG TABLET PO (08:42)
[2023-10-06] MEDS: Acetaminophen 325 MG TABLET 650 MG PO ×2 (08:42→19:20)
--- NOTE | 2023-10-06 12:11 | PC.NURSE ---
Assumed care of this patient at 1100, upon finishing report patient's private duty nurse was at nurse's station asking about a short man who was rude to Jennifer . informed her that this RN did not know whom the patient was referring to, will look into whom it. Private duty nurse also annoyed that patient had been placed in the hallway, informed her that rooms were prioritized for patients that need a monitor, would try to get patient into a room when one became available. Nurse also asked about Pt eval/plan of care. Case management referral had been made earlier this morning, PT eval placed. Informed both patient and visitor PT eval would happen tomorrow as it is the weekend. Patient and guest are chatting, patient very repetitive, otherwise no issues noted.
[2023-10-06 19:22] LABS: Appearance Urine Turbid; Color Urine Yellow; Glucose Urine UA Negative (Negative); Leukocyte Esterase Urine Large (3+) (Negative); Nitrite Urine Positive (Negative); PH 5.5 (5.0-9.0); UMIC TRIGGER UACC YES; Urine Blood Moderate (2+) (Negative); Urine Ketones Negative (Negative); Urine Protein 30 (1+) mg/dL (Neg-Trace)
[2023-10-06 19:37] LABS: Bacteria Urine 4+ (None Seen); UACC Culture Trigger YES; WBC Urine >50 /HPF (0-5)
--- NOTE | 2023-10-06 20:45 | P.HPHOSP_ITS ---
History of Present Illness Date of Service: 10/06/23 Attending physician on admission: Lola Renteria Chief Complaint: Hallucinations, s/p fall Martina Hebert is 88 years old woman with past medical history significant for hypothyroidism was brought to emergency department 3 days ago (August 02) after she was noted to have hallucination. It seems like she has been living in a nursing facility. The staff at the nursing facility found her on the ground. According to ED notes, about 2 weeks ago, the patient was treated for a urinary tract infection and treated with Bactrim which was discontinued due to patient's hallucinations. Most recent blood workup (August 02) showed no leukocytosis and normal hemoglobin and platelets. There are no electrolyte imbalances. Creatinine is 1.01 and BUN 27. Total CK was elevated at 611. At that time her urinalysis showed no evidence of urinary tract infection, however, today it was repeated remarkable for finding consistent with urinary tract infection. Urine drug screen is negative. Blood culture showed no growth so far. Head and C-spine CT scan showed no acute abnormalities. CXR is negative for pneumonia, consolidation pleural effusions. ED tx: Acetaminophen 1300 mg PO, Imodium as needed, levothyroxine 75 mcg p.o. daily. Patient has been in the emergency department for the last 3 days awaiting for placement PT/CM. According to ED provider the patient can not be into assisted living facility wall confused. Review of Systems 2 Review of Systems: All 12 systems were reviewed and normal except as noted in HPI. [facility] Medical History UTI (urinary tract infection) Hypothyroidism Social History (Updated 10/03/23 @ 11:27 by Jessica Cherry DO) Patient Tobacco Use Status: Never used Tobacco Advance Directives: No Advance Directives Information Provided: Yes Do you have a plan to hurt others: No Plan Meds Allergies Allergy/AdvReac Type Severity Reaction Status Date / Time Penicillins Allergy Hives Verified 10/03/23 11:11 sulfamethoxazole Allergy Hallucinati Verified 10/03/23 11:11 [From Bactrim] ons trimethoprim [From Bactrim] Allergy Hallucinati Verified 10/03/23 11:11 ons Active Medications: Current Medications Acetaminophen (Acetaminophen 325 Mg Tablet) 650 mg PO BID [facility] Last Admin: 10/06/23 08:42 Dose: 650 mg Acetaminophen (Acetaminophen 325 Mg Tablet) 975 mg PO Q6H PRN PRN Reason: mild pain, headache or fever Calcium Carbonate (Calcium Carbonate 500 Mg Tablet) 1,000 mg PO BID [facility] Last Admin: 10/06/23 08:42 Dose: 1,000 mg Heparin Sodium (Porcine) (Heparin Sodium,Porcine 5,000 Unit/Ml Vial) 5,000 unit SUBCUT Q12H [facility] Levothyroxine Sodium (Levothyroxine Sodium 50 Mcg Tablet) 50 mcg PO DAILY@0600 [facility] Last Admin: 10/06/23 06:45 Dose: 50 mcg Levothyroxine Sodium (Levothyroxine Sodium 25 Mcg Tablet) 25 mcg PO MOFR@0600 [facility] Last Admin: 10/04/23 09:48 Dose: 25 mcg Loperamide HCl (Loperamide Hcl 2 Mg Capsule) 2 mg PO DAILY PRN PRN Reason: Loose Stool Sodium Chloride (0.9 % Sodium Chloride Flush 3 Ml Syringe) 3 ml IVFLUSH QSHIFT [facility] Vitamin D (Cholecalciferol (Vitamin D3) 25 Mcg Tablet) 25 mcg PO DAILY [facility] Last Admin: 10/06/23 08:42 Dose: 25 mcg Home Medications ?Medication ?Instructions ?Recorded ?Confirmed ?Last Taken ?Type acetaminophen 650 mg 1,300 mg PO BID 10/03/23 10/03/23 Unknown History tablet,extended release (Tylenol Arthritis Pain) calcium carbonate 1,000 mg PO BID 10/03/23 10/03/23 Unknown History cholecalciferol (vitamin D3) 25 25 mcg PO DAILY 10/03/23 10/03/23 Unknown History mcg (1,000 unit) tablet (Vitamin D3) levothyroxine 25 mcg tablet 25 mcg PO MOFR@0600 10/03/23 10/03/23 Unknown History levothyroxine 50 mcg tablet 50 mcg PO DAILY 10/03/23 10/03/23 Unknown History loperamide 2 mg capsule 2 mg PO DAILY PRN Loose Stool 10/03/23 10/03/23 Unknown History Physical Exam 2 Vital Signs and Narrative: Vital Signs: Last Vital Signs Temp 101.2 F H 10/06/23 18:31 Pulse 89 10/06/23 18:25 Resp 16 10/06/23 18:25 BP 114/74 06/02/24 18:25 Pulse Ox 97 10/06/23 18:25 O2 Del Method Room Air 10/06/23 18:25 FiO2 98 10/06/23 14:37 BMI result Body Mass Index 18.2 Constitutional - Awake and Alert, No apparent distress. Seems to be little confused with no agitated or having hallucinations. She is very pleasant and kind. Underweight. HEENT - Pupils equally round. Normal sclerae. Moist oral mucosa. Heart - S1S2, RRR. Lungs - Normal lung expansion, Normal respiratory effort, No respiratory distress, CTA bilaterally Abdomen - NT / ND; +BS; No rebound or guarding - No CVA tenderness Extremities - no calf tenderness bilaterally, no swelling Musculoskeletal - Generalized muscle wasting. Skin - Warm/Dry Neurological - Alert & oriented only to person. No facial droop. No focal weakness grossly noted. Normal speech. Psychological - Appropriate affect Results Labs 10/03/23 13:41 10/03/23 13:38 Labs: Laboratory Results - last 24 hr 10/06/23 19:13 Urine Color Yellow Urine Appearance Turbid Urine pH 5.5 Ur Specific [place] 1.020 Urine Protein 30 (1+) H Urine Glucose (UA) Negative Urine Ketones Negative Urine Blood Moderate (2+) H Urine Nitrite Positive H Ur Leukocyte Esterase Large (3+) H Urine RBC 6-10 H Urine WBC >50 H Ur Squamous Epith Cells 6-10 Urine Bacteria 4+ Hyaline Casts 3-5 Assessment and Plan (1) UTI (urinary tract infection): Qualifiers: Urinary tract infection type: acute cystitis Hematuria presence: w ithout hematuria Qualified Code(s): N30.00 - Acute cystitis without hematuria Status: Acute (2) Acute encephalopathy: Status: Acute Plan Martina Hebert is 88 y/o woman admitted with: * Acute encephalopathy likely secondary to urinary tract infection. Suspecting she has underlying dementia. Admit to hospitalist service. Start empiric IV antibiotic therapy with ceftriaxone 1 g IV, 1st dose now then daily. Urine culture was obtained -will follow results. Rechecked blood cultures X2. Fall precautions. * Elevated CPK + recent fall. IV fluids now. Recheck CPK now. * Status post fall. Patient was found the ground on August 02 by [place] staff. Fall precautions. Check vitamin-D levels. Physical therapy. * Hypothyroidism. TSH is normal. Continue levothyroxine. Code status: Full DVT prophylaxis: Heparin Patient will need hospitalization for at least 2 midnights for acute encephalopathy secondary to urinary tract infection treatment IV antibiotics. Due to acute encephalopathy she is unsafe to return to her assisted living facility for now. Quality Stroke Does the patient have a stroke diagnosis?: No VTE Prior VTE?: No VTE Risk Level:: Medical - moderate - high VTE Device Contraindication: Treatment Not Indicated VTE Drug Contraindication: N/A - Med Ordered
--- NOTE | 2023-10-06 21:01 | PC.NURSE ---
Late entry patient was found to be increasingly confused, febrile rectally 101.2 provider made aware, straight cath'd for urine, patient tolerated procedure well, UA + UTI, provider decision to try and admit to hosptial. Patient difficult stick 24 Gauge R FA inserted first set of cultures obtained, patient to be admitted to hospital, resting quietly on stretcher still confused, repetitive.
--- NOTE | 2023-10-06 21:10 | PC.NURSE ---
Addendum entered by Skylar Valverde RN 10/06/23 22:27: addendum late entry Lindsey immediately called back, asking for the zinc furnace charger, charge unavailable, asked Lindsey if I could answer her questions, Lindsey wishing to speak to Martina directly, patient phone unavailable, informed Lindsey that if phone becomes available we will call her with martina from the phone. Original Note: Spoke to Martina's ammonia operator Brenda, informed her patient will be admitted to hospital, answered all questions. Lindsey will be back in the morning.
--- NOTE | 2023-10-06 21:14 | PC.NURSE ---
Called lab to request for phlebotomy to draw patient for additional admission labs, phlebotomy not around right now but will pass the message along .
[2023-10-06 21:40] LABS: Lactic Acid 2.4 mmol/L (0.5-2.0)
[2023-10-06 21:52] LABS: MANUAL DIFF FLAG NO
[2023-10-06 21:54] LABS: Basophils Percent Auto 0.2 % (0-2); Eosinophils Percent Auto 0.2 % (0-4); Hematocrit 36.6 % (37.0-47.0); Hemoglobin 12.6 g/dl (12.0-16.0); Imm Gran Abs Auto 0.05 X10*3/uL (0.00-0.03); Imm Gran Pct Auto 0.4 % (0.0-0.4); Lymphocytes Percent Auto 8.4 % (20-40); Mean Corpuscular HGB Conc 34.4 g/dl (31.0-35.0); Mean Corpuscular Hemoglobin 31.5 pg (27.0-33.0); Mean Corpuscular Volume 91.5 fL (80.0-98.0); Mean Platelet Volume 9.3 fL (9.4-12.3); Monocytes Percent Auto 8.3 % (2-11); Neutrophils Absolute Auto 10.2 x10*3/uL (2.0-8.3); Neutrophils Percent Auto 82.5 % (45-73); Platelet Count 236 X10*3/uL (160-400); Red Cell Distribution Width 14.2 % (11.0-16.0); White Blood Count 12.3 X10*3/uL (4.8-10.8)
[2023-10-06 22:12] LABS: Alanine Aminotransferase 18 U/L (0-31); Albumin Level 3.3 g/dL (3.5-5.0); Alkaline Phosphatase 61 U/L (39-117); Anion Gap 13 (12-20); Aspartate Amino Transferase 28 U/L (5-31); Bilirubin Total 0.7 mg/dL (0.0-1.0); Blood Urea Nitrogen 25 mg/dL (9-16); Calcium 9.2 mg/dL (8.4-10.2); Carbon Dioxide 24 mmol/L (22-29); Chloride 102 mmol/L (96-108); Creatinine Clr Calc Pharmacy 35.1; Estimated Glomerular Filt Rate > 60; Glucose Random 126 mg/dL (60-115); Potassium 4.2 mmol/L (3.3-5.1); Sodium 135 mmol/L (135-145); Total Protein 6.1 g/dL (6.5-8.0)
[2023-10-06] MEDS: cefTRIAXone sodium 1 GM in 0.9 % Sodium Chloride 50 ML IV (22:18)
[2023-10-06] MEDS: Lactated Ringers 500 ML 999 ML IV (22:18)
[2023-10-06 22:59] LABS: Reflex Lactate? Lactic Acid Added
[2023-10-06] MEDS: Lactated Ringers 1,000 ML 80 ML IVCONT (23:34)
[2023-10-07] VITALS: BP 127/67; PULSE 97; RESP 16; TEMP 36.7; O2SAT 95
[2023-10-07] LABS: ~Lactic Acid-LAB USE ONLY 1.2 mmol/L (0.5-2.0)
[2023-10-07 00:18] VITALS: BMI 17.3
--- NOTE | 2023-10-07 01:42 | PC.NURSE ---
pt AOx4, she knows where she is, and situations. pt correctly answers all my questions. Left arm and hip bruises d/t fall, c/o about R. hip pain. 2 assist to repositions, very stiff and fear of falling. she told me she had hallucination. will continue monitor.
[2023-10-07 03:46] VITALS: BP 138/86; PULSE 98; RESP 16; TEMP 37.4; O2SAT 94
[2023-10-07] MEDS: Levothyroxine Sodium 25 MCG TABLET PO (05:09)
[2023-10-07] MEDS: Levothyroxine Sodium 50 MCG TABLET PO (05:09)
[2023-10-07 06:57] VITALS: BP 144/78; PULSE 95; RESP 17; TEMP 36.6; O2SAT 97
[2023-10-07] MEDS: Cholecalciferol (Vitamin D3) 25 MCG TABLET PO (08:18)
[2023-10-07] MEDS: Acetaminophen 325 MG TABLET 650 MG PO ×2 (08:18→20:25)
[2023-10-07] MEDS: Heparin Sodium,Porcine 5,000 UNIT/ML VIAL 5000 UNIT SUBCUT ×2 (08:18→20:22)
--- NOTE | 2023-10-07 09:35 | MHC.CM.PN ---
Addendum entered by Radha Minor RN 10/07/23 13:41: PT rec STR. Patient agreeable and does not have a facility preference. Referrals placed in [facility] for local facilities. CM will continue to follow. Original Note: IMM delivered Patient is from [facility]. Uses walker when in apartment, and w/c around building. Patient reports private duty services, metallurgical engineering teacher Lindsey, who assists w/ rides, shopping, exercise, etc. PCP Dr. Chica Luna HCP on file listed as son, Last. Patient states she is working w/ her assessment clinician to assign new HCP and will be naming Lindsey as HCA. Not complete at this time. Of note, son reports that he believes there is an open case w/ elder services involving Lindsey and patient. He feels that Lindsey is influencing patient. Though previously confused, patient is a+ox4, answering all CM questions appropriately. Reports no concerns re: Lindsey. DP: PT eval pending. Goal is return to [facility], metallurgical engineering teacher to transport. CM will continue to follow.
[2023-10-07 09:57] LABS: Anion Gap 15 (12-20); Blood Urea Nitrogen 19 mg/dL (9-16); Calcium 9.2 mg/dL (8.4-10.2); Carbon Dioxide 20 mmol/L (22-29); Chloride 104 mmol/L (96-108); Creatinine Clr Calc Pharmacy 34.7; Estimated Glomerular Filt Rate > 60; Glucose Random 154 mg/dL (60-115); Potassium 4.3 mmol/L (3.3-5.1); Sodium 135 mmol/L (135-145)
[2023-10-07 11:35] LABS: Basophils Percent Auto 0.3 % (0-2); Eosinophils Percent Auto 0.2 % (0-4); Hematocrit 38.4 % (37.0-47.0); Hemoglobin 12.9 g/dl (12.0-16.0); Imm Gran Abs Auto 0.06 X10*3/uL (0.00-0.03); Imm Gran Pct Auto 0.5 % (0.0-0.4); Lymphocytes Absolute Auto 0.8 X10*3/uL (1.2-4.9); Mean Corpuscular HGB Conc 33.6 g/dl (31.0-35.0); Mean Corpuscular Hemoglobin 30.6 pg (27.0-33.0); Mean Platelet Volume 10.1 fL (9.4-12.3); Monocytes Absolute Auto 0.7 X10*3/uL (0.1-1.2); Monocytes Percent Auto 6.7 % (2-11); Neutrophils Absolute Auto 9.4 x10*3/uL (2.0-8.3); Neutrophils Percent Auto 85.3 % (45-73); Platelet Count 244 X10*3/uL (160-400); Red Blood Count 4.22 X10*6/uL (4.20-5.50); Red Cell Distribution Width 14.1 % (11.0-16.0)
[2023-10-07 12:32] VITALS: BMI 17.3
--- NOTE | 2023-10-07 12:44 | MHC.CLN ---
NUTRITION DIET=REGULAR, CHOPPED. ADDING ENSURE CLEAR BID TO PROVIDES 480 KCALS, 16 G PROTEIN. PRIVATE NURSE PRESENT AT VISIT. USUALLY EATS SALAD, CHICKEN AND FISH. DISLIKES BEEF AND CREAM SOUPS. QUALIFIES MODERATELY MALNOURISHED IN THE CONTEXT OF CHRONIC ILLNESS. FOLLOW FOR PO INTAKE OF MEALS AND SUPPLEMENT. SEE CLINICAL NUTRITION ASSESSMENT 10/07/23.
--- NOTE | 2023-10-07 12:57 | P.PNIM_ITS ---
Subjective Subjective Date of Service: 10/07/23 Physical Exam 2 Vital Signs: Vital Signs: Last Vital Signs Temp 98 F 10/07/23 06:57 Pulse 95 10/07/23 06:57 Resp 17 10/07/23 06:57 BP 144/78 H 10/07/23 06:57 Pulse Ox 97 10/07/23 06:57 O2 Del Method Room Air 10/07/23 06:57 FiO2 98 10/06/23 14:37 BMI result Body Mass Index 17.3 Const: Other: General awake alert, frail, resting comfortably in no acute distress. Anicteric sclera Neck supple no JVD. CVS regular rate rhythm, Respiratory lungs clear to auscultation, no respiratory distress, no wheeze, no rhonchi. Gastrointestinal abdomen soft, non tender, bowel sounds audible, no no guarding , no rigidity. Extremities no edema. Neuro non focal Skin no rash Objective Data Active Medications Acetaminophen (Acetaminophen 325 Mg Tablet) 650 mg PO BID [facility] Last Admin: 10/07/23 08:18 Dose: 650 mg Documented By: THUY Acetaminophen (Acetaminophen 325 Mg Tablet) 975 mg PO Q6H PRN PRN Reason: mild pain, headache or fever Calcium Carbonate (Calcium Carbonate 500 Mg Tablet) 1,000 mg PO BID [facility] Last Admin: 10/07/23 08:18 Dose: 1,000 mg Documented By: THUY Heparin Sodium (Porcine) (Heparin Sodium,Porcine 5,000 Unit/Ml Vial) 5,000 unit SUBCUT Q12H [facility] Last Admin: 10/07/23 08:18 Dose: 5,000 unit Documented By: THUY Ceftriaxone Sodium 1 gm/ (Sodium Chloride) 50 mls @ 100 mls/hr IV Q24H [facility] Levothyroxine Sodium (Levothyroxine Sodium 50 Mcg Tablet) 50 mcg PO DAILY@0600 [facility] Last Admin: 10/07/23 05:09 Dose: 50 mcg Documented By: ASA Levothyroxine Sodium (Levothyroxine Sodium 25 Mcg Tablet) 25 mcg PO MOFR@0600 [facility] Last Admin: 10/07/23 05:09 Dose: 25 mcg Documented By: ASA Loperamide HCl (Loperamide Hcl 2 Mg Capsule) 2 mg PO DAILY PRN PRN Reason: Loose Stool Sodium Chloride (0.9 % Sodium Chloride Flush 3 Ml Syringe) 3 ml IVFLUSH QSHIFT [facility] Last Admin: 10/07/23 08:17 Dose: Not Given Documented By: THUY Non-Admin Reason: IV Running Vitamin D (Cholecalciferol (Vitamin D3) 25 Mcg Tablet) 25 mcg PO DAILY [facility] Last Admin: 10/07/23 08:18 Dose: 25 mcg Documented By: THUY Labs 10/07/23 10:20 10/07/23 09:16 Labs: Laboratory Results - last 24 hr 10/06/23 10/06/23 10/06/23 19:13 20:55 21:44 MCV 91.5 MCH 31.5 MCHC 34.4 RDW 14.2 Plt Count 236 MPV 9.3 L Immature Gran % (Auto) 0.4 Neut % (Auto) 82.5 H Lymph % (Auto) 8.4 L [place] % (Auto) 8.3 Eos % (Auto) 0.2 Baso % (Auto) 0.2 Lymph # (Auto) 1.0 L [place] # (Auto) 1.0 Eos # (Auto) 0.0 Baso # (Auto) 0.0 Abs Immat Gran (auto) 0.05 H Absolute Neuts (auto) 10.2 H Absolute Nucleated RBC 0.000 Nucleated RBC % (auto) 0.0 Anion Gap 13 Estim Creat Clear Calc 35.1 Estimated GFR > 60 Random Glucose 126 H Lactic Acid 2.4 H* Lactic Acid F/U @ 2Hr Calcium 9.2 D Total Bilirubin 0.7 AST 28 ALT 18 Alkaline Phosphatase 61 Total Creatine Kinase 83 Total Protein 6.1 L Albumin 3.3 L Urine Color Yellow Urine Appearance Turbid Urine pH 5.5 Ur Specific [place] 1.020 Urine Protein 30 (1+) H Urine Glucose (UA) Negative Urine Ketones Negative Urine Blood Moderate (2+) H Urine Nitrite Positive H Ur Leukocyte Esterase Large (3+) H Urine RBC 6-10 H Urine WBC >50 H Ur Squamous Epith Cells 6-10 Urine Bacteria 4+ Hyaline Casts 3-5 10/06/23 10/06/23 10/07/23 21:47 23:44 09:16 MCV MCH MCHC RDW Plt Count MPV Immature Gran % (Auto) Neut % (Auto) Lymph % (Auto) [place] % (Auto) Eos % (Auto) Baso % (Auto) Lymph # (Auto) [place] # (Auto) Eos # (Auto) Baso # (Auto) Abs Immat Gran (auto) Absolute Neuts (auto) Absolute Nucleated RBC Nucleated RBC % (auto) Anion Gap Cancelled 15 Estim Creat Clear Calc Cancelled 34.7 Estimated GFR Cancelled > 60 Random Glucose Cancelled 154 H Lactic Acid Lactic Acid F/U @ 2Hr 1.2 Calcium Cancelled 9.2 Total Bilirubin Cancelled AST Cancelled ALT Cancelled Alkaline Phosphatase Cancelled Total Creatine Kinase Total Protein Cancelled Albumin Cancelled Urine Color Urine Appearance Urine pH Ur Specific [place] Urine Protein Urine Glucose (UA) Urine Ketones Urine Blood Urine Nitrite Ur Leukocyte Esterase Urine RBC Urine WBC Ur Squamous Epith Cells Urine Bacteria Hyaline Casts 10/07/23 10:20 MCV 91.0 MCH 30.6 MCHC 33.6 RDW 14.1 Plt Count 244 MPV 10.1 Immature Gran % (Auto) 0.5 H Neut % (Auto) 85.3 H Lymph % (Auto) 7.0 L [place] % (Auto) 6.7 Eos % (Auto) 0.2 Baso % (Auto) 0.3 Lymph # (Auto) 0.8 L [place] # (Auto) 0.7 Eos # (Auto) 0.0 Baso # (Auto) 0.0 Abs Immat Gran (auto) 0.06 H Absolute Neuts (auto) 9.4 H Absolute Nucleated RBC 0.000 Nucleated RBC % (auto) 0.0 Anion Gap Estim Creat Clear Calc Estimated GFR Random Glucose Lactic Acid Lactic Acid F/U @ 2Hr Calcium Total Bilirubin AST ALT Alkaline Phosphatase Total Creatine Kinase Total Protein Albumin Urine Color Urine Appearance Urine pH Ur Specific [place] Urine Protein Urine Glucose (UA) Urine Ketones Urine Blood Urine Nitrite Ur Leukocyte Esterase Urine RBC Urine WBC Ur Squamous Epith Cells Urine Bacteria Hyaline Casts Microbiology Microbiology Results: Microbiology 10/06/23 19:13 Urine Culture - Preliminary Urine Catheterized - Straight Catheter Culture in progress. Assessment and Plan (1) Acute encephalopathy: Status: Acute (2) UTI (urinary tract infection): Status: Acute Plan Martina Hebert is 88 y/o woman admitted with: Acute toxic encephalopathy likely secondary to urinary tract infection. No hallucinations or delusions noted, will avoid antipsychotics. Seems clearing answering questions appropriately. Continue IV ceftriaxone 1 g Urine culture and blood culture pending WBC trending down Elevated CPK likely due to recent fall. s/p IV fluids , repeat CPK normalized Status post fall. Patient was found the ground on August 02 by [facility] nursing facility staff. Fall precautions, vitamin-D levels pending. Physical therapy recommend short-term rehab . Hypothyroidism. TSH is normal. Continue levothyroxine. Moderate protein calorie malnutrition continue ensure Clear b.i.d./on chopped advanced diet. Code status: Full DVT prophylaxis: Heparin Patient will need continued inpatient hospitalization for management of acute encephalopathy secondary to urinary tract infection treatment IV antibiotics. Quality Stroke Does the patient have a stroke diagnosis?: No VTE Prior VTE?: No VTE Risk Level:: Medical - moderate - high VTE Device Contraindication: Treatment Not Indicated VTE Drug Contraindication: N/A - Med Ordered
[2023-10-07 15:08] VITALS: BP 141/60; PULSE 61; RESP 13; TEMP 36.3; O2SAT 97
[2023-10-07] MEDS: 0.9 % Sodium Chloride Flush 3 ML SYRINGE IVFLUSH ×2 (15:16→20:19)
[2023-10-07 19:26] VITALS: BP 119/56; PULSE 86; RESP 13; TEMP 36; O2SAT 97
[2023-10-07] MEDS: cefTRIAXone sodium 1 GM in 0.9 % Sodium Chloride 50 ML IV (20:46)
[2023-10-08 03:51] VITALS: BP 125/83; PULSE 59; RESP 16; TEMP 36.6; O2SAT 98
[2023-10-08] MEDS: Levothyroxine Sodium 50 MCG TABLET PO (05:12)
[2023-10-08 07:37] VITALS: BP 127/62; PULSE 62; RESP 13; TEMP 36.1; O2SAT 97
[2023-10-08] MEDS: Heparin Sodium,Porcine 5,000 UNIT/ML VIAL 5000 UNIT SUBCUT ×2 (08:25→20:43)
[2023-10-08] MEDS: Cholecalciferol (Vitamin D3) 25 MCG TABLET PO (08:25)
[2023-10-08] MEDS: Acetaminophen 325 MG TABLET 650 MG PO ×2 (08:25→20:47)
[2023-10-08] MEDS: 0.9 % Sodium Chloride Flush 3 ML SYRINGE IVFLUSH ×3 (08:26→20:44)
--- NOTE | 2023-10-08 12:26 | PC.NURSE ---
A personal RN came asking for info about patient, unable to tell patient due to HIPPA. Juli states nurses have been giving me information all this time. This flex o writer operator apologized and stated I could not. Open Elder Abuse case open against this individual. Ongoing investigation. Short Blonde hair, eye glasses, about 5'10 , medium build. expressed frustration against not getting information. CM made aware.
--- NOTE | 2023-10-08 13:10 | PC.NURSE ---
Pt stated Lindsey Pickard, , can receive any private Health information from patient if she calls
--- NOTE | 2023-10-08 13:54 | P.PNIM_ITS ---
Subjective Subjective Date of Service: 10/08/23 Interval History: Being followed for UTI Offers no acute complaints tolerating diet, decreased by mouth intake, taking ensure, no nausea, no vomiting, no urinary symptoms, all no acute issues overnight. Review of Systems All other system reviewed and are negative Physical Exam 2 Vital Signs: Vital Signs: Last Vital Signs Temp 96.9 F 10/08/23 07:37 Pulse 62 10/08/23 07:37 Resp 13 10/08/23 07:37 BP 127/62 10/08/23 07:37 Pulse Ox 97 10/08/23 07:37 O2 Del Method Room Air 10/08/23 07:37 FiO2 98 10/06/23 14:37 BMI result Body Mass Index 17.3 Const: Other: General awake alert, frail, resting comfortably in no acute distress. Anicteric sclera Neck supple no JVD. CVS regular rate rhythm, Respiratory lungs clear to auscultation, no respiratory distress, no wheeze, no rhonchi. Gastrointestinal abdomen soft, non tender, bowel sounds audible, no no guarding , no rigidity. Extremities no edema. Neuro non focal , awake alert x3 Skin no rash Objective Data Active Medications Acetaminophen (Acetaminophen 325 Mg Tablet) 650 mg PO BID [facility] Last Admin: 10/08/23 08:25 Dose: 650 mg Documented By: SHWETA Acetaminophen (Acetaminophen 325 Mg Tablet) 975 mg PO Q6H PRN PRN Reason: mild pain, headache or fever Calcium Carbonate (Calcium Carbonate 500 Mg Tablet) 1,000 mg PO BID [facility] Last Admin: 10/08/23 08:25 Dose: 1,000 mg Documented By: SHWETA Heparin Sodium (Porcine) (Heparin Sodium,Porcine 5,000 Unit/Ml Vial) 5,000 unit SUBCUT Q12H [facility] Last Admin: 10/08/23 08:25 Dose: 5,000 unit Documented By: SHWETA Ceftriaxone Sodium 1 gm/ (Sodium Chloride) 50 mls @ 100 mls/hr IV Q24H [facility] Last Infusion: 10/07/23 21:37 Dose: Infused Documented By: DENISE Levothyroxine Sodium (Levothyroxine Sodium 50 Mcg Tablet) 50 mcg PO DAILY@0600 [facility] Last Admin: 10/08/23 05:12 Dose: 50 mcg Documented By: DALIA Levothyroxine Sodium (Levothyroxine Sodium 25 Mcg Tablet) 25 mcg PO MOFR@0600 [facility] Last Admin: 10/07/23 05:09 Dose: 25 mcg Documented By: ASA Loperamide HCl (Loperamide Hcl 2 Mg Capsule) 2 mg PO DAILY PRN PRN Reason: Loose Stool Sodium Chloride (0.9 % Sodium Chloride Flush 3 Ml Syringe) 3 ml IVFLUSH QSHIFT [facility] Last Admin: 10/08/23 08:26 Dose: 3 ml Documented By: SHWETA Vitamin D (Cholecalciferol (Vitamin D3) 25 Mcg Tablet) 25 mcg PO DAILY [facility] Last Admin: 10/08/23 08:25 Dose: 25 mcg Documented By: SHWETA Labs 10/07/23 10:20 10/07/23 09:16 Microbiology Microbiology Results: Microbiology 10/06/23 21:44 Blood Culture - Preliminary Blood - Venous Gram negative [place] 10/06/23 19:13 Urine Culture - Preliminary Urine Catheterized - Straight Catheter Gram negative [place] 10/06/23 20:55 Blood Culture - Preliminary Blood - Venous No growth after 24 hours. Assessment and Plan (1) Acute encephalopathy: Status: Acute (2) UTI (urinary tract infection): Status: Acute Plan Martina Hebert is 88 y/o woman admitted with: Acute toxic encephalopathy likely secondary to urinary tract infection. ? baseline, answering questions appropriately No hallucinations or delusions noted, avoid antipsychotics. answering questions appropriately. Continue IV ceftriaxone Urine and blood culture both growing Gram-negative rods, WBC trending down follow final culture results and adjust antibiotics. Elevated CPK likely due to recent fall. s/p IV fluids , repeat CPK normalized Status post fall. Patient was found the ground on August 02 by [place] [facility] staff. Fall precautions, vitamin-D levels pending. Physical therapy recommend short-term rehab . Hypothyroidism. TSH is normal. Continue levothyroxine. Moderate protein calorie malnutrition continue ensure Clear b.i.d./on chopped advanced diet. Code status: Full DVT prophylaxis: Heparin Patient will need continued inpatient hospitalization for management of acute encephalopathy secondary to urinary tract infection treatment IV antibiotics. Quality Stroke Does the patient have a stroke diagnosis?: No VTE Prior VTE?: No VTE Risk Level:: Medical - moderate - high VTE Device Contraindication: Treatment Not Indicated VTE Drug Contraindication: N/A - Med Ordered
[2023-10-08 15:51] VITALS: BP 96/58; PULSE 72; RESP 13; TEMP 36.6; O2SAT 95
[2023-10-08 20:00] VITALS: BP 103/57; PULSE 72; RESP 16; TEMP 36.6; O2SAT 97
[2023-10-08] MEDS: cefTRIAXone sodium 1 GM in 0.9 % Sodium Chloride 50 ML IV (20:42)
[2023-10-09 03:14] VITALS: BP 116/57; PULSE 81; RESP 16; TEMP 36; O2SAT 97
[2023-10-09] MEDS: Levothyroxine Sodium 50 MCG TABLET PO (05:48)
[2023-10-09 08:00] VITALS: BP 105/58; PULSE 70; RESP 15; TEMP 36.5; O2SAT 98
[2023-10-09] MEDS: Acetaminophen 325 MG TABLET 650 MG PO ×2 (08:14→20:33)
[2023-10-09] MEDS: 0.9 % Sodium Chloride Flush 3 ML SYRINGE IVFLUSH ×3 (08:14→20:33)
[2023-10-09] MEDS: Cholecalciferol (Vitamin D3) 25 MCG TABLET PO (08:14)
[2023-10-09] MEDS: Heparin Sodium,Porcine 5,000 UNIT/ML VIAL 5000 UNIT SUBCUT ×2 (08:17→20:33)
--- NOTE | 2023-10-09 10:22 | MHC.CLN ---
Addendum entered by Cammy Portillo RD 10/09/23 12:51: ALERTED BY ARTISTS' MODEL OF REQUEST FOR CHANGE TO VANILLA ENSURE. Addendum entered by Cammy Portillo RD 10/09/23 12:45: FAMILY REQUESTED ENSURE VANILLA INSTEAD OF ENSURE CLEAR. SUPPLEMENT CHANGED TO ENSURE BID. PROVIDES 700 KCALS, 40 G PROTEIN. Original Note: F/I DIET=REGULAR. ENSURE CLEAR BID TO PROVIDE 480 KCALS, 16 G PROTEIN. SEEN BY ARTISTS' MODEL 10/07 WITH DIET UPGRADED TO REGULAR CONSISTENCY. QUALIFIES MODERATELY MALNOURISHED IN THE CONTEXT OF CHRONIC ILLNESS. MOST RECENT INTAKE APPEARS TO BE GOOD. FOLLOW FOR PO INTAKE OF MEALS AND SUPPLEMENT.
--- NOTE | 2023-10-09 11:20 | P.PNIM_ITS ---
Subjective Subjective Date of Service: 10/09/23 Interval History: Being followed for acute encephalopathy and UTI diagnosed with Enterobacter cloacae complex bacteremia Patient awake alert answering questions, no fevers, no chills , no urinary symptoms, tolerating diet no nausea, no vomiting, no acute events overnight. Review of Systems All other system reviewed and are negative Physical Exam 2 Vital Signs: Vital Signs: Last Vital Signs Temp 97.7 F 10/09/23 08:00 Pulse 70 10/09/23 08:00 Resp 15 10/09/23 08:00 BP 105/58 L 10/09/23 08:00 Pulse Ox 98 10/09/23 08:00 O2 Del Method Room Air 10/09/23 08:00 FiO2 98 10/06/23 14:37 BMI result Body Mass Index 17.3 Const: Other: General awake alert, frail, resting comfortably in no acute distress. Anicteric sclera Neck supple no JVD. CVS regular rate rhythm, Respiratory lungs clear to auscultation, no respiratory distress Gastrointestinal abdomen soft, non tender, bowel sounds audible, no guarding. Extremities no edema. Neuro non focal , awake alert x3,tangential speech Skin no rash Objective Data Active Medications Acetaminophen (Acetaminophen 325 Mg Tablet) 650 mg PO BID [facility] Last Admin: 10/09/23 08:14 Dose: 650 mg Documented By: AMILCAR Acetaminophen (Acetaminophen 325 Mg Tablet) 975 mg PO Q6H PRN PRN Reason: mild pain, headache or fever Calcium Carbonate (Calcium Carbonate 500 Mg Tablet) 1,000 mg PO BID [facility] Last Admin: 10/09/23 08:14 Dose: 1,000 mg Documented By: AMILCAR Heparin Sodium (Porcine) (Heparin Sodium,Porcine 5,000 Unit/Ml Vial) 5,000 unit SUBCUT Q12H [facility] Last Admin: 10/09/23 08:17 Dose: 5,000 unit Documented By: AMILCAR Ceftriaxone Sodium 1 gm/ (Sodium Chloride) 50 mls @ 100 mls/hr IV Q24H [facility] Last Infusion: 10/08/23 21:12 Dose: Infused Documented By: ASA Levothyroxine Sodium (Levothyroxine Sodium 50 Mcg Tablet) 50 mcg PO DAILY@0600 [facility] Last Admin: 10/09/23 05:48 Dose: 50 mcg Documented By: ASA Levothyroxine Sodium (Levothyroxine Sodium 25 Mcg Tablet) 25 mcg PO MOFR@0600 [facility] Last Admin: 10/07/23 05:09 Dose: 25 mcg Documented By: ASA Loperamide HCl (Loperamide Hcl 2 Mg Capsule) 2 mg PO DAILY PRN PRN Reason: Loose Stool Sodium Chloride (0.9 % Sodium Chloride Flush 3 Ml Syringe) 3 ml IVFLUSH QSHIFT [facility] Last Admin: 10/09/23 08:14 Dose: 3 ml Documented By: AMILCAR Vitamin D (Cholecalciferol (Vitamin D3) 25 Mcg Tablet) 25 mcg PO DAILY [facility] Last Admin: 10/09/23 08:14 Dose: 25 mcg Documented By: AMILCAR Labs 10/07/23 10:20 10/07/23 09:16 Microbiology Microbiology Results: Microbiology 10/06/23 21:44 Blood Culture - Final Blood - Venous Enterobacter cloacae complex 10/06/23 20:55 Blood Culture - Preliminary Blood - Venous No growth after 48 hours. 10/03/23 13:38 Blood Culture - Final Blood - Venous No growth after 5 days. 10/03/23 13:38 Blood Culture - Final Blood - Venous No growth after 5 days. 10/06/23 19:13 Urine Culture - Preliminary Urine Catheterized - Straight Catheter Gram negative sheridan Assessment and Plan (1) Acute encephalopathy: Status: Acute (2) UTI (urinary tract infection): Status: Acute Plan Patient was seen at [facility] on 10/01/23 for hallucinations after treated for UTI with Bactrim, it was felt hallucinations were related to Bactrim, and patient was discharged back to assisted living Patient return to ED on 10/02 for delusion was noted to have normal workup and urinalysis and was waiting for placement in the emergency room , on October 05 repeat UA was obtained due to confusion that was positive and admitted to medical floor. Acute toxic encephalopathy likely secondary to urinary tract infection/bacteremia. ? baseline, answering questions appropriately, tangential speech No hallucinations or delusions noted, avoid antipsychotics. Urine culture pending and blood culture Enterobacter cloacae resistant to cefazolin sensitive to Levaquin, ertapenem and gentamicin Will DC IV ceftriaxone and place patient on IV Levaquin ID consult Elevated CPK likely due to recent fall. s/p IV fluids , repeat CPK normalized Status post fall. Patient was found the ground on August 02 by at assisted living facility, continue Fall precautions, vitamin-D levels pending. Physical therapy recommend short-term rehab . Hypothyroidism. TSH is normal. Continue levothyroxine. Moderate protein calorie malnutrition continue ensure Clear b.i.d./on chopped advanced diet. Code status: Full DVT prophylaxis: Heparin Patient will need continued inpatient hospitalization for management of UTI and bacteremia waiting for final cultures and antibiotic adjustment hospice case manager arranging for safe disposition Quality Stroke Does the patient have a stroke diagnosis?: No VTE Prior VTE?: No VTE Risk Level:: Medical - moderate - high VTE Device Contraindication: Treatment Not Indicated VTE Drug Contraindication: N/A - Med Ordered
--- NOTE | 2023-10-09 12:16 | MHC.CM.PN ---
Addendum entered by Radha Minor RN 10/09/23 15:21: Patient signed JOANNE to give permission to release health information to son Belen Hebert. Copy placed in chart. Original Note: CM spoke with [facility], who confirms that there is an active investigation involving Lindsey, patients content editor. At this time there is no evidence to suggest any wrong doing. CM met with patient, with another CM present as witness, to discuss HCP. Patient a+ox4. Extensive conversation re: Lindsey and HCP. Son was concerned that Lindsey refers to herself as a nurse, but has never been a nurse. Patient reports she is aware Lindsye is not a licensed nurse but feels that she is a good fit for HCP as she has healthcare experience. Patient reports she does not feel exploited in any way by Lindsey. Patient also reports she revoked her POA, and does not plan on assigning another POA, but will work with a vice president safety for a will as she has ~800k in her bank account. Patient gave verbal consent to keep son updated on hospitalization. Patient completed HCP naming agents: 1) Lindsey Pickard and 2) manuel Hebert [phone] Bed offer from [facility] was accepted by patient, and facility has submitted for auth. Son updated per patient request. CM will continue to follow.
[2023-10-09] MEDS: levoFLOXacin/D5W 500 MG/100 ML PIGGYBACK 100 MG IV (13:06)
--- NOTE | 2023-10-09 13:26 | MHC.SL.SWA ---
Dysphasia Diet Status: No change Liquid Consistency and Strategies for Safe Swallow: Liquid Intake Recommendation: Thin Liquid Intake Strategies: Unrestricted Solid Food Consistency: Dietary Recommendations: Regular Additional Modifications to Solid Foods: Add sauce/gravy Oral Medication Intake: Crushed with Puree Please contact the pharmacy regarding appropriate crushable or liquid drug formulations that are available whenever modified delivery is recommended. Compensatory Strategies and Precautions to be Taken for Safe Swallow: Sitting Upright (90 deg) Alternate Liquids/Solids Rate of Ingestion Change Supervision While Eating and Drinking for Safe Swallow: Intermittent Supervision, Assist w/ tray setup Swallowing Recommended Treatments: Compens. Strategy Educat. Recommendation for Speech: Inpatient Speech Therapy Comment: Recommend pt continue with REGULAR solids and THIN liquids. Pt requires assistance w/ tray set up (i.e. cutting up food). Recommend 1 more f/u to ensure toleration of diet and to determine if pt requires crushed pills. Donor Floor Technician Clinican/Clinical Fellow: No Supervisory Statement: I have reviewed and agree with the student/clinical fellow's documentation: N/A Speech Language Pathologist: Tessie Hardin M.A., CCC-PLC ENGINEER
[2023-10-09 15:14] VITALS: BP 101/56; PULSE 69; RESP 16; TEMP 36.7; O2SAT 98
--- NOTE | 2023-10-09 16:48 | P.CNID_ITS ---
History of Present Illness Data of Consult Service Date: 10/09/23 Requesting physician: Miah Greco Primary Care Provider: Chica Zapata MD HPI Reason for consult: confusion,enterobacter She presents with confusion and hallucinations brought in by family. Reportedly she had routine urinalysis and culture done by Dr Ibrahim and family member says this was not treated She had no fever or chills or hematuria or abdominal pain but Bactrim was called in for treatment of culture. Enterobacter grew here Review of Systems 2 Review of Systems: Yes all other systems are reviewed and are negative [facility] Past Medical History Medical History UTI (urinary tract infection) Hypothyroidism Family History Family history: reviewed and not pertinent Social History Social History Household Members: None Household Members Other:: [facility] living Housing: Other Do you presently have visiting nurse or other home services: Yes Comment: 1:1 Patient Tobacco Use Status: Never used Tobacco service: No Meds Allergies Allergy/AdvReac Type Severity Reaction Status Date / Time Penicillins Allergy Hives Verified 10/03/23 11:11 sulfamethoxazole Allergy Hallucinati Verified 10/03/23 11:11 [From Bactrim] ons trimethoprim [From Bactrim] Allergy Hallucinati Verified 10/03/23 11:11 ons Active Medications: Current Medications Acetaminophen (Acetaminophen 325 Mg Tablet) 650 mg PO BID [facility] Last Admin: 10/09/23 08:14 Dose: 650 mg Acetaminophen (Acetaminophen 325 Mg Tablet) 975 mg PO Q6H PRN PRN Reason: mild pain, headache or fever Calcium Carbonate (Calcium Carbonate 500 Mg Tablet) 1,000 mg PO BID [facility] Last Admin: 10/09/23 08:14 Dose: 1,000 mg Heparin Sodium (Porcine) (Heparin Sodium,Porcine 5,000 Unit/Ml Vial) 5,000 unit SUBCUT Q12H [facility] Last Admin: 10/09/23 08:17 Dose: 5,000 unit Levofloxacin (Levaquin) 500 mg in 100 mls @ 100 mls/hr IV Q48H [facility] Last Infusion: 10/09/23 14:06 Dose: Infused Levothyroxine Sodium (Levothyroxine Sodium 50 Mcg Tablet) 50 mcg PO DAILY@0600 [facility] Last Admin: 10/09/23 05:48 Dose: 50 mcg Levothyroxine Sodium (Levothyroxine Sodium 25 Mcg Tablet) 25 mcg PO MOFR@06 [facility] Last Admin: 10/07/23 05:09 Dose: 25 mcg Loperamide HCl (Loperamide Hcl 2 Mg Capsule) 2 mg PO DAILY PRN PRN Reason: Loose Stool Sodium Chloride (0.9 % Sodium Chloride Flush 3 Ml Syringe) 3 ml IVFLUSH QSHIFT [facility] Last Admin: 10/09/23 14:51 Dose: 3 ml Vitamin D (Cholecalciferol (Vitamin D3) 25 Mcg Tablet) 25 mcg PO DAILY [facility] Last Admin: 10/09/23 08:14 Dose: 25 mcg Home Medications ?Medication ?Instructions ?Recorded ?Confirmed ?Last Taken ?Type acetaminophen 650 mg 1,300 mg PO BID 10/03/23 10/03/23 Unknown History tablet,extended release (Tylenol Arthritis Pain) calcium carbonate 1,000 mg PO BID 10/03/23 10/03/23 Unknown History cholecalciferol (vitamin D3) 25 25 mcg PO DAILY 10/03/23 10/03/23 Unknown History mcg (1,000 unit) tablet (Vitamin D3) levothyroxine 25 mcg tablet 25 mcg PO MOFR@0600 10/03/23 10/03/23 Unknown History levothyroxine 50 mcg tablet 50 mcg PO DAILY 10/03/23 10/03/23 Unknown History loperamide 2 mg capsule 2 mg PO DAILY PRN Loose Stool 10/03/23 10/03/23 Unknown History Physical Exam 2 Vital Signs: Vital Signs: Last Vital Signs Temp 98.1 F 10/09/23 15:14 Pulse 69 10/09/23 15:14 Resp 16 10/09/23 15:14 BP 101/56 L 10/09/23 15:14 Pulse Ox 98 10/09/23 15:14 O2 Del Method Room Air 10/09/23 15:14 FiO2 98 10/06/23 14:37 BMI result Body Mass Index 17.3 Const: General: cooperative HEENT: Head: Yes normal to inspection Face and sinus: Yes normal facial exam Mouth: Normal oral and palatal mucosa present Teeth and gingiva: d entition normal Eyes: General: appearance normal, both eyes and all related structures P upils: Equal, round and reactive pupils present Resp: Effort & Inspection: normal respiratory effort Cardio: Rate: regular rate Rhythm: regular rhythm GI: Palpation (GI): Soft to palpation and nontender : General: Yes no CVA tenderness Back/Spine/Pelvis: Back: no CVA tenderness Skin: General skin exam: no rashes or lesions noted Neuro: General: moves all extremities Cranial nerves: Yes Equal, round and reactive pupils present Extrem: General: Yes normal to inspection Psych: Other: tangential Results Labs 10/07/23 10:20 10/07/23 09:16 Microbiology Microbiology Results: Microbiology 10/06/23 19:13 Urine Catheterized - Straight Catheter Urine Culture - Final Enterobacter cloacae complex 10/06/23 21:44 Blood - Venous Blood Culture - Final Enterobacter cloacae complex 10/06/23 20:55 Blood - Venous Blood Culture - Preliminary No growth after 48 hours. 10/03/23 13:38 Blood - Venous Blood Culture - Final No growth after 5 days. 10/03/23 13:38 Blood - Venous Blood Culture - Final No growth after 5 days. 10/03/23 Unknown Urine Catheterized - Lockhart Catheter Urine Culture - Final No growth. Assessment and Plan (1) Acute encephalopathy: Status: Acute (2) Delirium due to another medical condition: Status: Acute (3) UTI (urinary tract infection): Qualifiers: Hematuria presence: without hematuria Urinary tract infection type: a cute cystitis Qualified Code(s): N30.00 - Acute cystitis without hematuria Status: Acute Plan There may just be UTI with fever or reaction to Bactrim or both. It is impossible without a rash to determine which. Po Levaquin renal dose adjust for Enterobacter for 10-14 days. Label Bactrim allergy (already done).
[2023-10-09 19:08] VITALS: BP 109/59; PULSE 99; RESP 16; TEMP 36.1; O2SAT 97
[2023-10-10 03:39] VITALS: BP 134/69; PULSE 93; RESP 18; TEMP 36; O2SAT 99
[2023-10-10] MEDS: Levothyroxine Sodium 50 MCG TABLET PO (05:47)
[2023-10-10 07:12] VITALS: BP 134/63; PULSE 53; RESP 16; TEMP 36.4; O2SAT 98
[2023-10-10] MEDS: Acetaminophen 325 MG TABLET 650 MG PO (08:25)
[2023-10-10] MEDS: Cholecalciferol (Vitamin D3) 25 MCG TABLET PO (08:26)
[2023-10-10] MEDS: Heparin Sodium,Porcine 5,000 UNIT/ML VIAL 5000 UNIT SUBCUT (08:27)
[2023-10-10] MEDS: Calcium Oyster Shell Elemental 500 MG TABLET 1000 MG PO (09:04)
--- NOTE | 2023-10-10 09:32 | MHC.CM.PN ---
Patient medically cleared for dc to [facility]. [facility] has auth. BLS transport scheduled for 12pm. Patient, HCP, RN and MD aware. IMM delivered.
--- NOTE | 2023-10-10 11:06 | MHC.SL.SWA ---
Speech Pathologist Impression: Risk of aspiration Dysphasia Diet Status: Recommend pt continue with REGULAR solids and THIN liquids. Pt requires assistance w/ tray set up (i.e. cutting up food). Patient tolerates pills small pills whole with liquid. Large pills are to be crushed in puree. Liquid Consistency and Strategies for Safe Swallow: Liquid Intake Recommendation: Thin Liquid Intake Strategies: Unrestricted Solid Food Consistency: Dietary Recommendations: Regular Oral Medication Intake: Large Pills Crushed with Puree Please contact the pharmacy regarding appropriate crushable or liquid drug formulations that are available whenever modified delivery is recommended. Compensatory Strategies and Precautions to be Taken for Safe Swallow: Sitting Upright (90 deg) Double Swallow Small Bites and Sips Alternate Liquids/Solids Rate of Ingestion Change Supervision While Eating and Drinking for Safe Swallow: Intermittent Supervision- Assist with tray set up and cutting up of food Foods to Avoid: Dry foods Swallowing Recommended Treatments: Compens. Strategy Educat. Recommendation for Speech: Further ST intervention is no longer warranted at this level of care. Please re-refer with any changes or if FUSE CUTTER can be of further assistance. Accounts Receivable Administrator Clinican/Clinical Fellow: No Supervisory Statement: I have reviewed and agree with the student/clinical fellow's documentation: N/A Speech Language Pathologist: Judi Matos M.A., CCC-FUSE CUTTER
--- NOTE | 2023-10-10 11:13 | P.DS_ITS ---
DS: Providers Provider Date of Service: 10/10/23 Date of admission: 10/06/23 20:41 Date of discharge: 10/10/23 Primary care physician: Chica Zapaat MD Consults: 10/04/23 07:56 Consult to Psychiatry Stat Consulting Provider: Psych Covering Reason for consultation: new onset delusions reportedly x 1 week Has provider been notified: Yes 10/06/23 09:12 Consult to Case Management Stat Comment: 10/09/23 11:36 Consult to Infectious Diseases Routine Consulting Provider: [facility] Reason for consultation: gm neg bacteremia Has provider been notified: No DS: Diagnosis Discharge Diagnosis (1) Delirium due to another medical condition: Status: Acute (2) UTI (urinary tract infection): Status: Acute (3) Toxic encephalopathy: Status: Acute (4) Infection caused by Enterobacter cloacae: Status: Acute (5) Bacteremia due to Enterobacter species: Status: Acute (6) Moderate protein-calorie malnutrition: Status: Acute DS: Summary Hospital Course Hospital Course: From the history and physical by the admitting hospitalist, Lola Renteria, 10/06/23: Martina Hebert is 88 years old woman with past medical history significant for hypothyroidism was brought to emergency department 3 days ago (August 02) [sic- should read October 02 ] after she was noted to have hallucination. It seems like she has been living in a nursing facility. The staff at the nursing facility found her on the ground. According to ED notes, about 2 weeks ago, the patient was treated for a urinary tract infection and treated with Bactrim which was discontinued due to patient's hallucinations. Most recent blood workup (August 02) [sic- should read August 02 ] showed no leukocytosis and normal hemoglobin and platelets. There are no electrolyte imba lances. Creatinine is 1.01 and BUN 27. Total CK was elevated at 611. At that time her urinalysis showed no evidence of urinary tract infection, however, today it was repeated remarkable for finding consistent with urinary tract infection. Urine drug screen is negative. Blood culture showed no growth so far. Head and C-spine CT scan showed no acute abnormalities. CXR is negative for pneumonia, consolidation pleural effusions. ED tx: Acetaminophen 1300 mg PO, Imodium as needed, levothyroxine 75 mcg p.o. daily. Patient has been in the emergency department for the last 3 days awaiting for placement PT/CM. According to ED provider the patient can not be into assisted living facility wall [sic- should read while ] confused. She was admitted to the medical-surgical floor and initially treated with IV ceftriaxone. Urine and blood cultures grew Enterobacter cloacae which was resistant to cefazolin and trimethoprim-sulfamethoxazole. Infectious Disease was consulted and antibiotic was switched to levofloxacin, to which the bacteria was sensitive. Her mental status improved and her confusion was likely due to a confusion of infection as well as possible adverse reaction to trimethoprim- sulfamethoxazole, which should be avoided in the future. CPK normalized with IV fluid hydration. She was discharged to short-term rehabilitation on 10 days of renally dosed levofloxacin. Ensure supplementation recommended due to malnutrition. Time Attestation Discharge Coordination Time (in mins): 40 Quality: Safe Use of Opioids Does Pt have an Active Cancer Diagnosis on the Problem List?: No Quality: Stroke Does the patient have a stroke diagnosis?: No Physical Exam Vital Signs: Vital Signs: Last Vital Signs Temp 97.5 F 10/10/23 07:12 Pulse 53 10/10/23 07:12 Resp 16 10/10/23 07:12 BP 134/63 10/10/23 07:12 Pulse Ox 98 10/10/23 07:12 O2 Del Method Room Air 10/10/23 07:12 FiO2 98 10/06/23 14:37 BMI result Body Mass Index 17.3 Gen: in no acute distress, thin with some muscle wasting HEENT: sclera anicteric, moist mucus membranes Neck: supple Lungs: clear to auscultation bilaterally Heart: regular rate and rhythm, no murmurs Abd: soft, non-tender, non-distended Ext: no edema Skin: warm/well-perfused Neuro: alert and oriented x3, no focal findings Psych: appropriate affect DS: Data Data Completed and Pending Completed studies during hospitalization [Text1]: Laboratory Results WBC 11.0 X10*3/uL (4.8-10.8) H 10/07/23 10:20 RBC 4.22 X10*6/uL (4.20-5.50) 10/07/23 10:20 Hgb 12.9 g/dl (12.0-16.0) 10/07/23 10:20 Hct 38.4 % (37.0-47.0) 10/07/23 10:20 MCV 91.0 fL (80.0-98.0) 10/07/23 10:20 MCH 30.6 pg (27.0-33.0) 10/07/23 10:20 MCHC 33.6 g/dl (31.0-35.0) 10/07/23 10:20 RDW 14.1 % (11.0-16.0) 10/07/23 10:20 Plt Count 244 X10*3/uL (160-400) 10/07/23 10:20 MPV 10.1 fL (9.4-12.3) 10/07/23 10:20 Immature Gran % (Auto) 0.5 % (0.0-0.4) H 10/07/23 10:20 Neut % (Auto) 85.3 % (45-73) H 10/07/23 10:20 Lymph % (Auto) 7.0 % (20-40) L 10/07/23 10:20 [facility] % (Auto) 6.7 % (2-11) 10/07/23 10:20 Eos % (Auto) 0.2 % (0-4) 10/07/23 10:20 Baso % (Auto) 0.3 % (0-2) 10/07/23 10:20 Lymph # (Auto) 0.8 X10*3/uL (1.2-4.9) L 10/07/23 10:20 [facility] # (Auto) 0.7 X10*3/uL (0.1-1.2) 10/07/23 10:20 Eos # (Auto) 0.0 X10*3/uL (0.0-0.4) 10/07/23 10:20 Baso # (Auto) 0.0 X10*3/uL (0.0-0.2) 10/07/23 10:20 Abs Immat Gran (auto) 0.06 X10*3/uL (0.00-0.03) H 10/07/23 10:20 Absolute Neuts (auto) 9.4 x10*3/uL (2.0-8.3) H 10/07/23 10:20 Absolute Nucleated RBC 0.000 X10*3/uL (0.0-0.012) 10/07/23 10:20 Nucleated RBC % (auto) 0.0 /100WBC (0.0-0.2) 10/07/23 10:20 VBG pH 7.34 (7.32-7.43) 10/03/23 13:45 VBG pCO2 50 mmHg 10/03/23 13:45 VBG pO2 32 mmHg 10/03/23 13:45 VBG HCO3 27 mmol/L (22-26) H 10/03/23 13:45 VBG O2 Saturation 48.0 % 10/03/23 13:45 VBG Base Excess 1.2 mmol/L 10/03/23 13:45 Sodium 135 mmol/L (135-145) 10/07/23 09:16 Potassium 4.3 mmol/L (3.3-5.1) 10/07/23 09:16 Chloride 104 mmol/L (96-108) 10/07/23 09:16 Carbon Dioxide 20 mmol/L (22-29) L 10/07/23 09:16 Anion Gap 15 (12-20) 10/07/23 09:16 BUN 19 mg/dL (9-16) H 10/07/23 09:16 Creatinine 0.79 mg/dL (0.5-1.4) 10/07/23 09:16 Estim Creat Clear Calc 34.7 10/07/23 09:16 Estimated GFR > 60 10/07/23 09:16 Random Glucose 154 mg/dL (60-115) H 10/07/23 09:16 Lactic Acid 2.4 mmol/L (0.5-2.0) H* 10/06/23 20:55 Lactic Acid F/U @ 2Hr 1.2 mmol/L (0.5-2.0) 10/06/23 23:44 Calcium 9.2 mg/dL (8.4-10.2) 10/07/23 09:16 Magnesium 2.0 mg/dL (1.6-2.6) 10/03/23 13:38 Total Bilirubin Cancelled 10/06/23 21:47 Direct Bilirubin 0.2 mg/dL (0.0-0.5) 10/03/23 13:38 AST Cancelled 10/06/23 21:47 ALT Cancelled 10/06/23 21:47 Alkaline Phosphatase Cancelled 10/06/23 21:47 Total Creatine Kinase 83 U/L (26-140) 10/06/23 21:44 Troponin I High Sens 11.5 ng/L (<3.5-17.0) 10/03/23 13:38 Total Protein Cancelled 10/06/23 21:47 Albumin Cancelled 10/06/23 21:47 Lipase 42 U/L (8-78) 10/03/23 13:38 TSH 2.92 uIU/mL (0.32-4.0) 10/03/23 13:38 Urine Color Yellow 10/06/23 19:13 Urine Appearance Turbid 10/06/23 19:13 Urine pH 5.5 (5.0-9.0) 10/06/23 19:13 Ur Specific [place] 1.020 (1.005-1.025) 10/06/23 19:13 Urine Protein 30 (1+) mg/dL (Neg-Trace) H 10/06/23 19:13 Urine Glucose (UA) Negative mg/dL (Negative) 10/06/23 19:13 Urine Ketones Negative mg/dL (Negative) 10/06/23 19:13 Urine Blood Moderate (2+) (Negative) H 10/06/23 19:13 Urine Nitrite Positive (Negative) H 10/06/23 19:13 Ur Leukocyte Esterase Large (3+) (Negative) H 10/06/23 19:13 Urine RBC 6-10 /HPF (0-2) H 10/06/23 19:13 Urine WBC >50 /HPF (0-5) H 10/06/23 19:13 Ur Squamous Epith Cells 6-10 /HPF (0-2) 10/06/23 19:13 Urine Bacteria 4+ (None Seen) 10/06/23 19:13 Hyaline Casts 3-5 /LPF (0-2) 10/06/23 19:13 Microbiology 10/06/23 19:13 Urine Catheterized - Straight Catheter Urine Culture - Final Enterobacter cloacae complex 10/06/23 21:44 Blood - Venous Blood Culture - Final Enterobacter cloacae complex 10/06/23 20:55 Blood - Venous Blood Culture - Preliminary No growth after 48 hours. 10/03/23 13:38 Blood - Venous Blood Culture - Final No growth after 5 days. 10/03/23 13:38 Blood - Venous Blood Culture - Final No growth after 5 days. 10/03/23 Unknown Urine Catheterized - [place] Catheter Urine Culture - Final No growth. Impressions Chest X-Ray 10/03/23 11:22 IMPRESSION: Distorted thoracic cage but no active disease. Cervical Spine CT 10/03/23 14:13 IMPRESSION: CT HEAD: No acute intracranial finding. Sequela of microangiopathy CT CERVICAL SPINE: 1. No cervical spine fracture or traumatic malalignment identified. 2. Multilevel degenerative changes. Head CT 10/03/23 14:13 IMPRESSION: CT HEAD: No acute intracranial finding. Sequela of microangiopathy CT CERVICAL SPINE: 1. No cervical spine fracture or traumatic malalignment identified. 2. Multilevel degenerative changes. ITS Impressions Chest X-Ray 10/03/23 11:22 IMPRESSION: Distorted thoracic cage but no active disease. Cervical Spine CT 10/03/23 14:13 IMPRESSION: CT HEAD: No acute intracranial finding. Sequela of microangiopathy CT CERVICAL SPINE: 1. No cervical spine fracture or traumatic malalignment identified. 2. Multilevel degenerative changes. Head CT 10/03/23 14:13 IMPRESSION: CT HEAD: No acute intracranial finding. Sequela of microangiopathy CT CERVICAL SPINE: 1. No cervical spine fracture or traumatic malalignment identified. 2. Multilevel degenerative changes. Discharge Plan Discharge Anticipated Discharge Date/Time: 10/10/23 11:03 Patient Disposition: [facility] Discharge Diagnosis: Enterobacter cloacae UTI/bacteremia, acute toxic encephalopathy, malnutrition Referrals: [facility] [Outside] - 1 Day (short term rehab) Chica Zapata MD [Primary Care Provider] - 1 Week Discharge Medications: New levofloxacin 750 mg tablet 750 mg PO Q48H Qty: 5 0RF Continued loperamide 2 mg Capsule 2 mg PO DAILY PRN (Reason: Loose Stool) levothyroxine 25 mcg tablet 25 mcg PO MOFR@0600 Rx Instructions: in addition to the levothyroxine 50 mcg dose acetaminophen [Tylenol Arthritis Pain] 650 mg Tablet Extended Release 1,300 mg PO BID calcium carbonate 500 mg calcium (1,250 mg) Tablet 1,000 mg PO BID levothyroxine 50 mcg tablet 50 mcg PO DAILY cholecalciferol (vitamin D3) [Vitamin D3] 25 mcg (1,000 unit) Tablet 25 mcg PO DAILY Discharge Orders: Discharge Order (Routine); Ordered 10/10/23 Ordered By: Denae Espinoza Diet: Advance to usual diet Activity on Discharge: As tolerated Stand Alone Forms: Patient Portal Discharge page Print Language: Telugu Care Plan Goals: cure of infection Health Concerns: Enterobacter cloacae bacteremia/UTI encephalopathy malnutrition Plan of Treatment: take levofloxacin 750 mg every other day for 10 days [5 doses total] avoid trimethoprim-sulfamethoxazole [Bactrim] Ensure 1 can twice daily discharge to short-term rehabilitation Please follow up with your primary care doctor within 1 week of discharge from SNF. Return to the hospital if you experience recurrent or worsening symptoms. Assessment: See Discharge Summary.
[2023-10-12 17:34] LABS: Vitamin D 25-OH, D2 <4 ng/mL; Vitamin D 25-OH, D3 30 ng/mL; Vitamin D 25-OH, Total 30 ng/mL (30-100)
--- NOTE | 2023-10-18 13:42 | P.CDIM_ITS ---
PROVIDER RESPONSE TEXT: To clarify, the appropriate diagnosis supported by the clinical indicators: Sepsis is/was present and is a clinical diagnosis QUERY TEXT: PHYSICIAN'S DOCUMENTATION REQUEST Date of Query: 10/18/2023 07:42 AM EDT Patient Name: Martina Hebert Admit Date: 10/07/2023 Dear Denae Espinoza, A review of the medical record indicates additional documentation may be needed. Please review below and update the documentation accordingly. Documentation on progress note dated 10/08/23 included the diagnosis of sepsis. The patient's infectious clinical indicators include: WBC 12.3 T 101.2 P 102 LA 2.4 Sepsis due to UTI present on admission Gram-negative sheridan bacteremia due to UTI Sepsis is not noted in the Discharge Summary of 10/10/23 Based on the above information and the recognized standard for sepsis, could you please clarify if th is diagnoses is still accurate and reflective of the patient's condition to ensure quality of the medical record. Sepsis is/was present and is a clinical diagnosis After study, Sepsis has been ruled out Other (explain) Clinically unable to determine (explain) Thank you, Katie George RN Use of terms such as suspected, likely, concern for, or probable (associated with a specific diagnosi s that is being evaluated, monitored, or treated as if it exists) are acceptable and can be coded in the inpatient se tting, when documented at the time of discharge. Please use your independent medical judgment in providing your response. THIS QUERY IS PART OF THE PERMANENT MEDICAL RECORD
== END 2023-10-10 11:54 | disposition skilled nursing facility (03) | DRG 689 ==
LOC: HO.ED 10-06 20:39 → HO.EDOVER 10-06 20:49 → HO.S3 10-06 23:22
PROVIDERS: Emergency Medicine; Registered Nurse Emergency; Admitting Provider Internal Medicine; Emergency Provider Emergency Medicine; PCP Internal Medicine; Visit Provider Family Medicine
DX: N30.00 Acute cystitis without hematuria (principal); G92.9 Unspecified toxic encephalopathy; E44.0 Moderate protein-calorie malnutrition; F05 Delirium due to known physiological condition; Z68.1 Body mass index [BMI] 19.9 or less, adult; E86.0 Dehydration; W19.XXXA Unspecified fall, initial encounter; T36.8X5A Adverse effect of other systemic antibiotics, initial encounter; E03.9 Hypothyroidism, unspecified; Z79.890 Hormone replacement therapy; Z79.899 Other long term (current) drug therapy
CPT/HCPCS: 36415; 70450; 71045; 72125; 80048; 80053; 80076; 81001; 82306; 82550; 82803; 83605; 83690; 83735; 84443; 84484; 85025; 87040; 87077; 87086; 87088; 87186; 87205; 92526; 92610; 93005; 97116; 97162; 97530; 99285; J0696; J1644; J1956; J7120

== ENCOUNTER → 2023-10-03 11:13 | Outpatient (BNV) | payer MEDICARE, SELFPAY | PROVIDERS: Emergency Provider Emergency Medicine; Visit Provider Internal Medicine | DX: R00.1 Bradycardia, unspecified (principal) | CPT/HCPCS: 93010 ==

== ENCOUNTER → 2023-10-04 03:54 | Outpatient (BNV) | payer MEDICARE, SELFPAY | PROVIDERS: Emergency Provider Emergency Medicine; Visit Provider Internal Medicine | DX: I49.1 Atrial premature depolarization (principal) | CPT/HCPCS: 93010 ==

== ENCOUNTER → 2023-10-06 20:41 | Outpatient (BNV) | payer MEDICARE, SELFPAY | PROVIDERS: Admitting Provider Internal Medicine; Emergency Provider Emergency Medicine; Visit Provider Internal Medicine | DX: N30.00 Acute cystitis without hematuria (principal); A49.8 Other bacterial infections of unspecified site; F05 Delirium due to known physiological condition; G92.9 Unspecified toxic encephalopathy; R78.81 Bacteremia | CPT/HCPCS: 99222; 99232; 99233; 99239 ==

== ENCOUNTER → 2023-10-06 20:41 | Outpatient (BNV) | payer MEDICARE, SELFPAY | PROVIDERS: Admitting Provider Internal Medicine; Emergency Provider Emergency Medicine; PCP Internal Medicine; Visit Provider Internal Medicine | DX: G93.40 Encephalopathy, unspecified (principal); F05 Delirium due to known physiological condition; N30.00 Acute cystitis without hematuria | CPT/HCPCS: 99222 ==